=== PATIENT | female | born 1965 | race Caucasian/White ===

== ENCOUNTER 2017-01-16 08:21 | Emergency (ER) | payer BC, OTHER ==
--- NOTE | 2017-01-16 09:32 | RAD ---
HISTORY: Chest pain COMPARISONS: June 12, 2013 VIEWS: 2: Frontal dual-energy and lateral views of the chest. FINDINGS: CARDIOMEDIASTINAL SILHOUETTE: The cardiomediastinal silhouette is normal. ALEJANDRA: The alejandra are normal. PLEURA: The costophrenic angles are sharp. No pleural abnormalities are noted. LUNG PARENCHYMA: The lungs are clear. ABDOMEN: The upper abdomen is clear. There is no subphrenic gas. BONES AND SOFT TISSUES: No bone or soft tissue abnormalities are noted. OTHER: None. IMPRESSION: NO ACTIVE CARDIOPULMONARY DISEASE.
[2017-01-16 09:37] VITALS: BP 125/66
[2017-01-16 09:59] LABS: Hematocrit 40 % (35-47); Hemoglobin 13.4 g/dl (12.0-16.0); Mean Corpuscular HGB Conc 33 g/dl (31-36); Mean Corpuscular Hemoglobin 28 pg (27-31); Mean Corpuscular Volume 84 fL (80-97); Mean Platelet Volume 9 um3 (7.4-10.4); Red Blood Count 4.83 10^6/ul (4.0-5.4); Red Cell Distribution Width 13 % (10.5-15); White Blood Count 5.3 10^3/ul (3.5-10.8)
[2017-01-16 10:09] LABS: Albumin 4.1 g/dL (3.2-5.2); BUN/Creatinine Ratio 15.6 (8-20); C Reactive Protein 7.89 mg/L (< 5.00); Calcium 9.3 mg/dL (8.6-10.3); EGFR African American 101.2 (>60); EGFR Non-African American 78.7 (>60); Globulin 3.1 g/dL (2-4); Potassium 3.9 mmol/L (3.5-5.0); Total Bilirubin 0.4 mg/dL (0.2-1.0); Total Protein 7.2 g/dL (6.4-8.9)
--- NOTE | 2017-01-17 22:43 | ED ---
Lew Wilder Adam, scribed for Kendell Shelley MD on 01/16/17 at 1030 . HPI Chest Pain - HPI Summary HPI Summary: Pt is a 51 year old female presenting with chest pain. The pain radiates to the pt's arms and back. It is worse with breathing, swallowing, and any movement. She states that the pain was severe for about 10 minutes this morning. She has taken omeprazole and codeine which have alleviated the pain but it is still present. Pt has been sick for the past week and she also c/o sore throat, hoarse voice, and vomiting. She denies any known fever but has not been taking her temperature. PMHx of GERD, hiatal hernia, and carpal tunnel. - History of Current Complaint Chief Complaint: EDChestPainROMI Time Seen by Provider: 01/16/17 08:40 Hx Obtained From: Patient Onset/Duration: Started Hours Ago, Atraumatic Timing: Constant Initial Severity: Moderate Current Severity: Mild Pain Intensity: 6 Pain Scale Used: 0-10 Numeric Chest Pain Location: Diffuse Chest Pain Radiates: Yes Chest Pain Radiates To:: Back, Arm - Both Aggravating Factor(s): Movement, Deep Breaths, Other: - Swallowing Alleviating Factor(s): Other: - Omeprazole, codeine Associated Signs and Symptoms: Positive: Vomiting, Other: - Sore throat - Allergy/Home Medications Allergies/Adverse Reactions: Allergies Allergy/AdvReac Type Severity Reaction Status Date / Time No Known Allergies Allergy Verified 01/16/17 08:44 PMH/Surg Hx/FS Hx/Imm Hx Endocrine/Hematology History: Denies: Hx Diabetes Cardiovascular History: Reports: Hx Angina Denies: Hx Hypertension, Hx Pacemaker/ICD, Other Cardiovascular Problems/ Disorders Respiratory History: Denies: Hx Asthma, Hx Chronic Obstructive Pulmonary Disease (COPD), Other Respiratory Problems/Disorders GI History: Reports: Hx Gall Bladder Disease - cholecystectomy, Hx Gastroesophageal Reflux Disease - ON MED Denies: Other GI Disorders History: Denies: Hx Renal Disease, Other Problems/Disorders Musculoskeletal History: Reports: Hx Back Problems - Bulging disc, degen disc disease Denies: Other Musculoskeletal History Sensory History: Denies: Hx Contacts or Glasses, Hx Hearing Aid Opthamlomology History: Denies: Hx Contacts or Glasses Neurological History: Reports: Other Neuro Impairments/Disorders - bulging disc in lower spine, causing some low back pain Psychiatric History: Denies: Hx Panic Disorder - Cancer History Hx Chemotherapy: No Hx Radiation Therapy: No - Surgical History Surgery Procedure, Year, and Place: [id number]. CHOLECYSTECTOMY-2003 -[place]. RT KNEE SURGERY MENISCUS 2014 Hx Anesthesia Reactions: No - Immunization History Date of Tetanus Vaccine: unknown Date of Influenza Vaccine: none Infectious Disease History: No Infectious Disease History: Reports: Hx Tuberculosis - 2003 Denies: Traveled Outside the [place] in Last 30 Days - Family History Known Family History: Positive: Cardiac Disease - CAD (mother) - Social History Occupation: Employed Part-time Lives: With Family - Alcohol Use: None Hx Substance Use: No Substance Use Type: Reports: None Hx Tobacco Use: No Smoking Status (MU): Never Smoked Tobacco Review of Systems Negative: Fever Positive: Sore Throat Positive: Chest Pain Positive: Vomiting All Other Systems Reviewed And Are Negative: Yes Physical Exam Triage Information Reviewed: Yes Vital Signs On Initial Exam: Initial Vitals Temp Pulse Resp BP Pulse Ox 98.8 F 60 20 122/77 100 01/16/17 08:22 01/16/17 08:22 01/16/17 08:22 01/16/17 08:22 01/16/17 08:22 Vital Signs Reviewed: Yes Appearance: Positive: Well-Appearing, No Pain Distress Skin: Positive: Warm, Skin Color Reflects Adequate Perfusion, Dry Head/Face: Positive: Normal Head/Face Inspection Eyes: Positive: Normal ENT: Positive: Normal ENT inspection Neck: Positive: Supple, Nontender Respiratory/Lung Sounds: Positive: Clear to Auscultation, Breath Sounds Present Cardiovascular: Positive: RRR Abdomen Description: Positive: Nontender, Soft Bowel Sounds: Positive: Present Musculoskeletal: Positive: Normal Neurological: Positive: Normal Psychiatric: Positive: Affect/Mood Appropriate - Richelle Coma Scale Coma Scale Total: 15 Diagnostics - Vital Signs Vital Signs Temp Pulse Resp BP Pulse Ox 01/16/17 10:00 61 14 100 01/16/17 09:36 98.4 F 59 14 125/66 100 01/16/17 09:00 59 18 125/66 99 01/16/17 08:40 64 18 99 01/16/17 08:39 151/77 01/16/17 08:22 98.8 F 60 20 122/77 100 - Laboratory Lab Results: Lab Results 04/07/2501/16/17 01/16/17 Range/Units 09:40 09:40 09:40 WBC 5.3 (3.5-10.8) 10^3/ul RBC 4.83 (4.0-5.4) 10^6/ul Hgb 13.4 (12.0-16.0) g/dl Hct 40 (35-47) % MCV 84 (80-97) fL MCH 28 (27-31) pg MCHC 33 (31-36) g/dl RDW 13 (10.5-15) % Plt Count 307 (150-450) 10^3/ul MPV 9 (7.4-10.4) um3 Neut % (Auto) 57.0 (38-83) % Lymph % (Auto) 32.9 (25-47) % Hitchcock % (Auto) 6.0 (1-9) % Eos % (Auto) 3.1 (0-6) % Baso % (Auto) 1.0 (0-2) % Absolute Neuts (auto) 3.0 (1.5-7.7) 10^3/ul Absolute Lymphs (auto) 1.7 (1.0-4.8) 10^3/ul Absolute Monos (auto) 0.3 (0-0.8) 10^3/ul Absolute Eos (auto) 0.2 (0-0.6) 10^3/ul Absolute Basos (auto) 0.1 (0-0.2) 10^3/ul Absolute Nucleated RBC 0 10^3/ul Nucleated RBC % 0 Sodium 136 (133-145) mmol/L Potassium 3.9 (3.5-5.0) mmol/L Chloride 103 (101-111) mmol/L Carbon Dioxide 26 (22-32) mmol/L Anion Gap 7 (2-11) mmol/L BUN 12 (6-24) mg/dL Creatinine 0.77 (0.51-0.95) mg/dL Est GFR ( Amer) 101.2 (>60) Est GFR (Non-Af Amer) 78.7 (>60) BUN/Creatinine Ratio 15.6 (8-20) Glucose 114 H (70-100) mg/dL Lactic Acid 1.8 (0.5-2.0) mmol/L Calcium 9.3 (8.6-10.3) mg/dL Total Bilirubin 0.40 (0.2-1.0) mg/dL AST 22 (13-39) U/L ALT 24 (7-52) U/L Alkaline Phosphatase 69 (34-104) U/L Troponin I 0.00 (<0.04) ng/mL C-Reactive Protein 7.89 H (< 5.00) mg/L Total Protein 7.2 (6.4-8.9) g/dL Albumin 4.1 (3.2-5.2) g/dL Globulin 3.1 (2-4) g/dL Albumin/Globulin Ratio 1.3 (1-3) Result Diagrams: 01/16/17 09:40 01/16/17 09:40 Lab Statement: Any lab studies that have been ordered have been reviewed, and results considered in the medical decision making process. - Radiology CXR Radiology Interpretation Completed By: Radiologist - IMPRESSION: NO ACTIVE CARDIOPULMONARY DISEASE - EKG 08:33 Cardiac Rate: Bradycardia - Borderline - 61 BPM EKG Rhythm: Sinus Rhythm - Borderline bradycardia - Additional Comments Diagnostic Additional Comments: Troponin I - 0.00 Chest Pain Course/Dx - Course Course Of Treatment: Ms. Garvey presented with a cough for a few days and then some CP with coughing and breathing today. Her W/U was negative for any dangerous condition and she will be treated for acute bronchitis. - Diagnoses Provider Diagnoses: Bronchitis Discharge - Discharge Plan Condition: Stable Disposition: HOME Prescriptions: Clarithromycin TAB* [Biaxin TAB*] 500 mg PO BID #20 tab guaiFENesin/CODIEN 100MG-10MG* [Robitussin AC 100Mg-10Mg*] 5 ml PO Q4H PRN #250 udc MDD 30 PRN Reason: Cough Patient Education Materials: Acute Bronchitis (ED) Referrals: Marlene Martinez [Primary Care Provider] - Additional Instructions: Follow up with your Primary Care Provider this week. The documentation as recorded by the Lew esparza Adam accurately reflects the service I personally performed and the decisions made by me, Kendell Shelley MD.
== END 2017-01-16 11:04 | disposition home or self-care (01) ==
LOC: ED 08:21
DX: J40 Bronchitis, not specified as acute or chronic (principal); J02.9 Acute pharyngitis, unspecified; R07.9 Chest pain, unspecified; R11.10 Vomiting, unspecified
CPT/HCPCS: 36415; 71020; 80053; 83605; 84484; 85025; 86140; 93005; 99282

== ENCOUNTER → 2017-03-29 21:47 | Emergency (ER) | payer BC ==
[~2017-03-29 21:47] MED LIST: diPHENhydraMINE PO* 50 MG PO ONE
--- NOTE | 2017-03-29 22:44 | ED ---
Skin Complaint - HPI Summary HPI Summary: Patient presents with one week of itching and rash after exposure to poison mel. She is using over the counter anti-histamine creme and obtained steroids today from her provider. She does not feel that these are helping but she just took the first dose of steroid today. She has taken hot showers with only temporary relief. She denies fever, swelling or purulent drainage. - History of Current Complaint Chief Complaint: EDRashSkinAbscess Time Seen by Provider: 03/29/17 22:24 Stated Complaint: POISON [place] Hx Obtained From: Patient, Family/[employer] Onset/Duration: Started Weeks Ago - 1, Atraumatic, Still Present Timing: Constant Onset Severity: Mild Current Severity: Severe Skin Location: Diffuse Character: Pruritus, Redness Aggravating Symptom(s): Touch Alleviating Symptom(s): Nothing Associated Signs & Symptoms: Negative Related History: Possible Reaction to: Environmental Exposure - poison mel - Allergy/Home Medications Allergies/Adverse Reactions: Allergies Allergy/AdvReac Type Severity Reaction Status Date / Time No Known Allergies Allergy Verified 01/16/17 08:44 PMH/Surg Hx/FS Hx/Imm Hx Endocrine/Hematology History: Denies: Hx Diabetes Cardiovascular History: Reports: Hx Angina Denies: Hx Hypertension, Hx Pacemaker/ICD, Other Cardiovascular Problems/ Disorders Respiratory History: Denies: Hx Asthma, Hx Chronic Obstructive Pulmonary Disease (COPD), Other Respiratory Problems/Disorders GI History: Reports: Hx Gall Bladder Disease - cholecystectomy, Hx Gastroesophageal Reflux Disease - ON MED Denies: Other GI Disorders History: Denies: Hx Renal Disease, Other Problems/Disorders Musculoskeletal History: Reports: Hx Back Problems - Bulging disc, degen disc disease Denies: Other Musculoskeletal History Sensory History: Denies: Hx Contacts or Glasses, Hx Hearing Aid Opthamlomology History: Denies: Hx Contacts or Glasses Neurological History: Reports: Other Neuro Impairments/Disorders - bulging disc in lower spine, causing some low back pain Psychiatric History: Denies: Hx Panic Disorder - Cancer History Hx Chemotherapy: No Hx Radiation Therapy: No - Surgical History Surgery Procedure, Year, and Place: [id number]. CHOLECYSTECTOMY-2003 -[place]. RT KNEE SURGERY MENISCUS 2014 Hx Anesthesia Reactions: No - Immunization History Date of Tetanus Vaccine: unknown Date of Influenza Vaccine: none Infectious Disease History: Reports: Hx Tuberculosis - 2003 Denies: Traveled Outside the [place] in Last 30 Days - Family History Known Family History: Positive: Cardiac Disease - CAD (mother) - Social History Occupation: Employed Full-time Lives: With Family Alcohol Use: None Hx Substance Use: No Substance Use Type: Reports: None Hx Tobacco Use: No Smoking Status (MU): Never Smoked Tobacco Review of Systems Negative: Fever, Chills Positive: Other - diffuse erythematous pustules with linear tracks All Other Systems Reviewed And Are Negative: Yes Physical Exam Triage Information Reviewed: Yes Vital Signs Reviewed: Yes Appearance: Positive: Well-Appearing, No Pain Distress, Obese Skin: Positive: Warm, Skin Color Reflects Adequate Perfusion, Dry, Soft, Erythema @ - diffuse erythematous pustules with linear tracks Head/Face: Positive: Normal Head/Face Inspection Eyes: Positive: EOMI, ANGELA, Conjunctiva Clear ENT: Positive: Hearing grossly normal Respiratory/Lung Sounds: Positive: Breath Sounds Present Cardiovascular: Positive: RRR Musculoskeletal: Positive: Strength/ROM Intact. Negative: Edema Left, Edema Right Neurological: Positive: Sensory/Motor Intact, Alert, Oriented to Person Place, Time, NV Bundle Intact Distally, Normal Gait Psychiatric: Positive: Affect/Mood Appropriate AVPU Assessment: Alert Course/Dx - Differential Diagnoses - Skin Complaint Differential Diagnoses: Abscess, Cellulitis, Contact Dermatitis, Local Allergic Reaction, MRSA, Poison Mel, Poison [place], Urticaria - Diagnoses Provider Diagnoses: Poison mel Discharge - Discharge Plan Condition: Stable Disposition: HOME Patient Education Materials: Poison Mel (ED) Referrals: Radha Nix [Primary Care Provider] - Additional Instructions: Please begin using benadryl 50mg every four hours in combination with the steroids you received, and the anti-itch lotion. Follow-up with your primary care provider if symptoms persist.
== END | disposition home or self-care (01) ==
LOC: ED 21:47
DX: L23.7 Allergic contact dermatitis due to plants, except food (principal)
CPT/HCPCS: 99281; A9270-GY

== ENCOUNTER 2018-03-12 19:39 | Emergency (ER) | payer BC ==
--- OUTSIDE RECORDS SUMMARY | 2018-03-12 19:47 | XMS REPORT ---
:1965 External Reference #:[id number] Author Organization [facility] Address [address] [place] [address] Phone [phone] Care Team Providers Name Role Phone HCP given Primary Care Physician Unavailable Payers Type Date Identification Numbers Payment Provider Subscriber Health Maintenance Policy Number: [id number] Vero Castro Organization (HMO) PayID: [id number] [address] [place] [address] Problems Date Description Provider Status Onset: 08/15/2008 Esophagitis Bree Henderson MD Active Onset: 05/28/2010 Low back pain Carina Leal Active Onset: 02/25/2015 Disorder of shoulder Marlene Martinez RPA-C Active Onset: 02/25/2015 Gastroesophageal reflux disease Marlene Martinez RPA-C Active Onset: 06/14/2016 Adjustment disorder with mixed Radha Negrete PA Active emotional features Onset: 12/06/2016 Carpal tunnel syndrome Radha Negrete PA Active Onset: 01/10/2017 Localized, primary osteoarthritis Radha Negrete PA Active Onset: 03/15/2017 Joint pain Radha Negrete PA Active Onset: 03/15/2017 Varicose veins of lower extremity Radha Negrete PA Active Onset: 10/24/2017 Thoracic and lumbosacral neuritis Radha Negrete PA Active Onset: 10/24/2017 Cervical disc disorder Radha Negrete PA Active Onset: 10/24/2017 Degenerative joint disease Radha Negrete PA Active involving multiple joints Onset: 11/15/2017 Liver cyst Radha Negrete PA Active Family History Date Family Member(s) Problem(s) Comments Father , uncertain cause, in his sleep at age 51 or so. Mother CHF, 05/2017 at age 81 First Son Gerardo First Son 10-10-86 Second Son Mook Second Son 07-01-1994 First Daughter Winifred First Daughter 11-27-96 Number of Siblings Siblings: 7 First Sister living, thyroid disease. Social History Type Date Description Comments Marital Status Patient is Employment No longer working, approved for social security disability - 2016.Previously worked at [employer], "[employer]", works 12 hour shifts, began 06/16. Cigarette Use Denies Cigarette Use Smoking Non Smoker Sun Exposure Does not use sunscreen Seat Belt/Car Seat Never uses a seat belt Contraceptive Methods Does not currently use any method of control. Pt has a 23 y/o, 19y/o and 13 y/o. as of 05/2010. Allergies, Adverse Reactions, Alerts Date Description Reaction Status Severity Comments 03/31/2011 No Known Drug Allergy active Medications Medication Date Status Form Strength Qnty SIG Indications Ordering Provider Methylprednisolone 01/03/ Active TBPK 4mg 1unit use as M50.10 Xavier, 2018 nir Hdez on M.D. package Omeprazole 01/03/ Active Capsules 20mg 60cap 1 cap by K20.9 Sopruben, 2018 DR nir Zavala, twice a D.O. day K21.9 Carpal Tunnel Wrist 03/15/2017 Active Misc 2units use as G56.03 Hektor , Stabilizer/Small/Medium directed sara Garcia bilateral carpal tunnel syndrome Waist High Compression 03/15/2017 Active 2units use as I83.893 Penelope , Stockings MARIELLE Cleveland Knee Stabilizer W/Hinged 01/10/2017 Active Misc 1units use as M17.11 Hektor, Bars/Neoprene/Small directed MARIELLE Garcia Crutches-Aluminum 01/10/2017 Active Misc 1pair use as M17.11 morenita Negrete PA Tylenol With Codeine #3 01/10/2017 Active Tablets 30 90tabs 1 tab by M17.11 Silcoff, 0- mouth q8 Lemuel, 30 hours as M.D. mg needed for severe pain, max 3/day Knee Brace/Flexible 10/26/2016 Active Misc 1units use as M25.561 Hektor, Stays/Medium directed MARIELLE Garcia Escitalopram Oxalate 10/26/2016 Active Tablets 20 90tabs 1 by mouth F43.23 Silcoff, mg every day Pop Hdez Colchicine 06/07/2016 Active Tablets 0. 180tabs 1-2 tabs Hektor, 6m by mouth audrey Garcia every day PA as needed Ibuprofen 09/09/2015 Active Tablets 80 180tabs one tablet M51.26 Silcoff, 0m by mouth audrey Hdez three M.D. times a day if needed for pain M25.579 M75.80 Allopurinol 04/18/2015 Active Tablets 300mg 90tabs Take 1 E79.0 Silcoff , Tablet By Jayce Hdez Daily M.DEric Clobetasol 04/06/2017 Hx Cream 0.05% 90gm apply small Hektor, Propionate E - amount to MARIELLE Garcia 05/06/2017 effected areas twice as needed for itch/poison oak Methylprednisolone 03/29/2017 Hx TBPK 4mg 1units use as Hektor, - directed on MARIELLE Garcia 04/28/2017 package Desloratadine 03/28/2017 Hx Tablets 5mg 30tabs 1 tab by L23.7 Penelope, - Dispers mouth every MARIELLE Garcia 04/27/2017 day as needed for itch Meloxicam 03/15/2017 Hx Tablets 15mg 30tabs 1 tab by M17.11 Hekgénesis, - mouth every MARIELLE Garcia 04/14/2017 day for joint pain (don't take w ibuprofen) Escitalopram 06/14/2016 Hx Tablets 10mg 30tabs 1 tab by F43.23 Penelope, Oxalate - mouth every MARIELLE Garcia 10/26/2016 day Hydrocortisone 08/24/2015 Hx Ointment 2.5% 40gm apply to R21 Penelope, - areas twice MARIELLE Garcia 05/04/2017 a day as needed for itchiness, use sparyingly L23.9 Amoxicillin 08/24/2015 - Hx Capsules 250mg 30caps 1 tid for J20.9 Angeles A. 09/03/2015 ten days for Kleandrea pruett.DEric Lomotil 08/24/2015 - Hx Tablets 2.5-0.0 14tabs 1-2 four R19.7 Angeles A. 10/23/2015 25mg times a day Klepack, as needed M.D. diarrhea Zofran 08/24/2015 - Hx Tablets 4mg 12tabs 1 twice a R19.7 Angeles A. 10/23/2015 day to three Klepack, times a day M.D. as needed for nausea Typhoid 08/10/2015 - Hx 4units 1 every Z71.89 Angeles A. Vaccine Live 06/13/2016 other day Klepack, Oral for 4 doses M.D. Augmentin 05/25/2015 - Hx Tablets 875-125 14tabs 1 tab twice 380.10 Angeles A. 06/01/2015 mg a day with Klepack, food for 7 M.D. days Ciprodex 05/23/2015 - Hx Suspension 0.3-0.1 7.500ml 4 drops in 380.10 Angeles A. 05/23/2015 % the left ear Klepack, canal twice M.D. daily or a week. Cortisporin 05/23/2015 - Hx Solution 3.5-100 10ml 4 gtts to 380.10 Angeles A. 05/30/2015 00-1 the left ear Klepack, canal tid M.D. for 1 week Percocet 05/23/2015 - Hx Tablets 5-325mg 15tabs 1 tab every Angeles A. 06/23/2015 8 hours as Klepapepe, needed for M.D. pain Colcrys 03/11/2015 - Hx Tablets 0.6mg 60tabs 1 by mouth 274.00 Silcoff, 07/05/2015 bid Pop Hdez Allopurinol 03/11/2015 - Hx Tablets 100mg 30tabs 1 po qd 274.00 Silcoff , 04/18/2015 Pop Hdez Omeprazole 02/26/2015 - Hx Capsules DR 40mg 60caps 1 by mouth K20.9 Hektor, 01/03/2018 daily in the [place], [place] morning K21.9 Hydrocortisone 02/25/2015 - Hx Ointment 2.5% 20gm apply to areas 782.1 Silcoff, 03/28/2015 twice a day as Pop Hdez needed for itchiness, use sparyingly 692.9 Prednisone 02/25/2015 - Hx Tablets 20mg 5tabs 1 tab every 782.1 Silcoff , 03/02/2015 morning for 5 Pop Hdez days 692.9 Clotrimazole 05/08/2014 - Hx Cream 1% 60gm apply twice 782.1 Silcoff, 02/25/2015 a day for Lemuel, at least 2 M.D. weeks, then continue one week once the sxs have improved. Mupirocin 05/08/2014 - Hx Ointment 2% 22g apply three 782.1 Silcoff, 02/25/2015 times a day Lemuel, x 1 week to MSrinath affected areas Knee Brace With 03/06/2014 - Hx 1units Wear daily Silcoff, Medial And Lateral 03/06/2015 Fabio Hdez M.D. Clobetasol 02/24/2014 - Hx Cream 0.05% 15gr apply small 782.1 Silcoff, Propionate E 02/25/2015 amt to dina Hdezed Pop areas bid for up to 2 week Indomethacin 02/12/2014 - Hx Capsules 50mg 30caps 1 tab po 719.46 Silcoff, 03/15/2014 t.i.d., can Lemuel, reduce to M.D. bid if pain improves, cont until pain gone Acetasol HC 11/05/2013 - Hx Solution 2-1% 10ml Instill 3-5 Silcoff, 12/06/2013 drops in Lemuel ear(s) Enrique.DEric every 4-6 hours Gabapentin 10/04/2013 - Hx Capsules 300mg 90caps 1 po qhs x 726.19 Silcoff, 12/05/2013 3 days then Lemuel try bidx 3 M.D. d, then tid Cortic-ND 09/23/2013 - Hx Solution 10-10 1bottle 4 gtt Silcoff, 02/06/2014 -1mg/ tid-qid x 7 Lemuel, ml days M.D. Celebrex 09/23/2013 - Hx Capsules 200mg 9caps 1 po qd or 726.19 Silcoff , 10/04/2013 bid Lemuel (samples) Pop Skelaxin 09/23/2013 - Hx Tablets 800mg 12tabs 1 tid-qid 726.19 Silcoff, 02/06/2014 (samples) Pop Hdez Nexium 09/23/2013 - Hx Capsules 20mg 90caps 1 po qd 20 530.11 Silcoff, 02/06/2014 min before kunal Hdez M.D. Cyclobenzaprine 06/13/2013 - Hx Tablets 10mg 1/2 tablet Silcoff, HCL 02/06/2014 by mouth Lemuel, every 8 M.D. hours prn for muscle spasm Penicillin V 02/18/2013 - Hx Tablets 500mg 40tabs 1 by mouth 525.9 Silcoff, Potassium 02/28/2013 four times Lemuel, a day for M.D. tooth infection Cipro 12/19/2012 - Hx Tablets 500mg 20tabs 1 tab po 009.2 Silcoff, 12/29/2012 bid x 10 reji Hdez M.D. Hydrocortisone 03/31/2011 - Hx Lotion 2.5% 120ml Apply bid 726.19 Silcoff, Topical Base 08/11/2012 to affected margarito Hdez M.D. Prednisone 03/31/2011 - Hx Tablets 20mg 10tabs one tablet 726.19 Silcoff, 04/24/2012 twice daily Lemuel, for 5 days M.D. Metronitazole 05/28/2010 - Hx Tablets 500mg 14tabs 1 tab po 616.10 Silcoadrina, 06/05/2010 bid x 7d Pop Hdez Cipro 05/28/2010 - Hx Tablets 250mg 6tabs 1 tab bid x 788.1 Xavier, 06/01/2010 3 Pop Hdez Omeprazole 03/13/2009 - Hx Capsules 20mg 180caps 1 by mouth 530.10 Silcoadrian, 02/26/2015 twice a day Pop Hdez 530.81 Imipramine 01/20/2009 - Hx Tablets 10mg one tablet po at 789.03 Bridger, HCL 03/12/2009 hs, increase to 2 MD Óscar tablets prn Optivar 07/25/2008 - Hx Solution 0.05% 10c 1 gtte to both 375.15 Tomásson , 04/24/2012 c eyes bid as Bree NUÑEZ directed for allergic conjunctivitis Prevacid 07/18/2008 - Hx Capsules 30mg 90c 1 po qd 530.10 Beatriz, 03/13/2009 aps Bree NUÑEZ Ibuprofen 07/18/2008 - Hx Tablets 800mg 90t one tablet by 722.10 Silcoff, 07/05/2015 abs mouth three times estephanie Hdez as needed Pop for musculoskeletal pain 719.47 726.19 Livostin 07/18/2008 - Hx Suspension 0.05% 10cc one drop to both 375.15 Beatriz, 07/25/2008 eyes bid prn Bree NUÑEZ Ciprofloxacin 04/29/2008 - Hx Tablets 250mg 14tab 1 PO Once bid Beatriz , HCL 05/06/2008 s For 7 days Bree NUÑEZ Septra DS 04/18/2008 - Hx Tablets 800-160 6tabs 1 po bid x3 days 595.0 Silcoff, 04/21/2008 Pop Hdez Pyridium 04/18/2008 - Hx Tablets 100mg 6tabs 1-2 po tid prn 595.0 Silcoff, 04/21/2008 bladder pain Pop Hdez Zithromax Z-Krish 07/30/2007 - Hx Tablets 250mg 2Pack 2 tablets po day Beatriz, 08/10/2007 s 1, then one Bree NUÑEZ tablet po day 2 to 11 Work Note 11/21/2006 - Hx piltong is fit to 719.45 Beatriz, 11/22/2006 return to work Bree NUÑEZ without restrictions. Physical Therapy 10/11/2006 - Hx pelvic pain Beatriz, 11/21/2006 Bree NUÑEZ bladder pain Work Note 08/21/2006 - Hx piltong castro is 719.45 Beatriz, 11/21/2006 unable to work Bree NUÑEZ due to musculoskelatal strain. Compazine 06/26/2006 - Hx Tablets 5mg 12tab 1 po q8 hours 787.02 Beatriz , 11/21/2006 s prn nausea Bree NUÑEZ Prevacid 06/06/2006 - Hx Capsules 30mg 21cap 1 qd For Reflux Beatriz, 07/18/2008 s Bree NUÑEZ Advair Diskus 05/16/2006 - Hx Inhaler 100mcg; 1Disk 1 puff bid Beatriz, 03/12/2009 50mcg Bree NUÑEZ Z-Krish 04/13/2006 - Hx Tablets 250mg 1tabs 2 tab day one 466.0 Radhames, 04/13/2006 then 1 tab daily Sanjuana NUÑEZ x 4 more days. Septra DS 04/13/2006 - Hx Tablets 800mg;1 20tab 1 po bid x 10 466.0 Radhames, 04/23/2006 60 mg s days Sanjuana NUÑEZ Use Instead Of Zpak But Not Both. Prednisone 02/16/2006 - Hx Tablets 20mg 10tab one tablet twice 726.19 Beatriz 05/16/2006 s daily for five Bree NUÑEZ days Keflex 02/16/2006 - Hx Tablets 500mg 21tab one tablet po 726.19 Beatriz, 05/16/2006 s tid Bree NUÑEZ Hydrocortisone 02/16/2006 - Hx Lotion 2.5% 120ml Apply bid as 726.19 Beatriz, Topical Base 03/12/2009 directed Bree NUÑEZ Omeprazole 02/16/2006 - Hx Capsules 20mg one tablet po 726.19 Beatriz, 06/06/2006 bid Bree NUÑEZ Clarithromycin - Hx Tablets 500mg 1 by mouth twice Unknown 03/14/2017 a day Guaifenesin-Code - Hx Syrup 100-10m 1 teaspoon every Unknown ine 03/14/2017 g/5ML 4 hours as needed for cough Immunizations CPT Code Status Date Vaccine Lot # [id number] Given 08/09/2017 Influenza Virus Vaccine, Quadrivalent, Split, [id number] Preservative Free 09815 Given 08/10/2015 Influenza Virus Vaccine, Quadrivalent, Split, [place] Use 71398 Given 08/10/2015 Hep A, Adult [id number] 27177 Given 08/13/2012 Adacel or Boostrix, TDaP [id number] 24951 Given 08/13/2012 Flu, Split Virus 3Yrs [id number] Vital Signs Date Vital Result Comment 03/12/2018 BP Systolic 130 mmHg BP Diastolic 88 mmHg Weight 159.00 lb 01/03/2018 BP Systolic 122 mmHg BP Diastolic 76 mmHg Weight 161.00 lb 10/24/2017 BP Systolic 128 mmHg BP Diastolic 84 mmHg Body Temperature 98.5 F Height 61 inches 5'1" w/boots Weight 160.00 lb w/boots BMI (Body Mass Index) 30.2 kg/m2 08/09/2017 BP Systolic 120 mmHg BP Diastolic 78 mmHg 07/06/2017 BP Systolic 130 mmHg BP Diastolic 90 mmHg Weight 153.00 lb 03/28/2017 BP Systolic 110 mmHg BP Diastolic 68 mmHg Weight 156.00 lb 03/15/2017 BP Systolic 130 mmHg BP Diastolic 80 mmHg Weight 157.00 lb 01/18/2017 BP Systolic 122 mmHg BP Diastolic 80 mmHg Body Temperature 98.2 F Weight 157.00 lb 01/10/2017 BP Systolic 135 mmHg BP Diastolic 78 mmHg Height 59.75 inches 4'11.75" Weight 156.00 lb BMI (Body Mass Index) 30.7 kg/m2 10/26/2016 BP Systolic 124 mmHg BP Diastolic 70 mmHg Weight 152.00 lb 06/14/2016 BP Systolic 122 mmHg BP Diastolic 70 mmHg Height 59.75 inches 4'11.75" Weight 152.00 lb BMI (Body Mass Index) 29.9 kg/m2 08/24/2015 BP Systolic 128 mmHg BP Diastolic 80 mmHg Heart Rate 80 /min Respiratory Rate 16 /min Body Temperature 98.5 F 08/10/2015 BP Systolic 160 mmHg BP Diastolic 98 mmHg Weight 153.00 lb 07/06/2015 BP Systolic 122 mmHg BP Diastolic 80 mmHg Weight 153.00 lb 05/26/2015 BP Systolic 120 mmHg BP Diastolic 70 mmHg Body Temperature 98.1 F 05/23/2015 BP Systolic 136 mmHg BP Diastolic 84 mmHg Body Temperature 98.8 F Weight 153.00 lb 03/09/2015 BP Systolic 132 mmHg BP Diastolic 80 mmHg Height 59.75 inches 4'11.75" Weight 152.00 lb BMI (Body Mass Index) 29.9 kg/m2 02/25/2015 BP Systolic 124 mmHg BP Diastolic 80 mmHg Body Temperature 97.9 F Height 59.5 inches 4'11.50" Weight 156.00 lb BMI (Body Mass Index) 31.0 kg/m2 05/08/2014 BP Systolic 147 mmHg BP Diastolic 82 mmHg Heart Rate 68 /min Weight 157.00 lb 02/24/2014 BP Systolic 157 mmHg med cuff BP Diastolic 83 mmHg med cuff BP Systolic Recheck 129 mmHg lg cuff BP Diastolic Recheck 80 mmHg lg cuff Heart Rate 62 /min 57 Height 59.25 inches 4'11.25" Weight 153.00 lb BMI (Body Mass Index) 30.6 kg/m2 02/12/2014 BP Systolic 141 mmHg BP Diastolic 87 mmHg Heart Rate 67 /min Body Temperature 98.1 F Weight 158.00 lb 12/05/2013 BP Systolic 123 mmHg BP Diastolic 75 mmHg Heart Rate 61 /min Body Temperature 98.1 F Weight 151.00 lb 10/04/2013 BP Systolic 116 mmHg BP Diastolic 70 mmHg Heart Rate 75 /min 09/23/2013 BP Systolic 141 mmHg BP Diastolic 75 mmHg Heart Rate 62 /min Body Temperature 98.1 F Height 61 inches 5'1" shoes on Weight 154.00 lb shoes on BMI (Body Mass Index) 29.1 kg/m2 07/08/2013 BP Systolic 138 mmHg BP Diastolic 77 mmHg Heart Rate 68 /min Weight 153.00 lb 06/14/2013 BP Systolic 138 mmHg BP Diastolic 77 mmHg Heart Rate 62 /min Body Temperature 98.4 F Weight 156.00 lb 02/18/2013 BP Systolic 134 mmHg BP Diastolic 82 mmHg Body Temperature 97.4 F Height 59.75 inches 4'11.75" Weight 157.00 lb BMI (Body Mass Index) 30.9 kg/m2 12/19/2012 BP Systolic 140 mmHg BP Diastolic 86 mmHg Heart Rate 63 /min Weight 150.00 lb 08/13/2012 BP Systolic 140 mmHg BP Diastolic 82 mmHg Heart Rate 65 /min Height 60 inches 5'0" Weight 154.00 lb BMI (Body Mass Index) 30.1 kg/m2 04/25/2012 BP Systolic 135 mmHg BP Diastolic 89 mmHg Heart Rate 60 /min Body Temperature 97.8 F Weight 154.00 lb 03/31/2011 BP Systolic 141 mmHg BP Diastolic 79 mmHg Heart Rate 76 /min Body Temperature 97.9 F Height 59.75 inches 4'11.75" Weight 158.00 lb BMI (Body Mass Index) 31.1 kg/m2 05/28/2010 BP Systolic 118 mmHg BP Diastolic 68 mmHg Heart Rate 74 /min Height 60 inches 5'0" Weight 150.00 lb BMI (Body Mass Index) 29.3 kg/m2 Last Menstrual Period 0 hysterectomy 01/25/2010 BP Systolic 129 mmHg BP Diastolic 85 mmHg Heart Rate 65 /min Height 60.25 inches 5'0.25" Weight 149.00 lb BMI (Body Mass Index) 28.9 kg/m2 03/12/2009 BP Systolic 108 mmHg BP Diastolic 68 mmHg Height 59.50 inches 4'11.50" Weight 149.00 lb BMI (Body Mass Index) 29.6 kg/m2 08/15/2008 BP Systolic 114 mmHg BP Diastolic 70 mmHg Height 60 inches 5'0" Weight 148.00 lb BMI (Body Mass Index) 28.9 kg/m2 07/18/2008 BP Systolic 104 mmHg BP Diastolic 68 mmHg Body Temperature 98.1 F Height 60 inches 5'0" Weight 147.00 lb BMI (Body Mass Index) 28.7 kg/m2 04/18/2008 BP Systolic 118 mmHg BP Diastolic 82 mmHg Body Temperature 98.2 F Height 60 inches 5'0" Weight 144.00 lb BMI (Body Mass Index) 28.1 kg/m2 07/30/2007 BP Systolic 92 mmHg BP Diastolic 60 mmHg Body Temperature 98.1 F Height 60 inches 5'0" Weight 140.00 lb BMI (Body Mass Index) 27.3 kg/m2 11/21/2006 BP Systolic 122 mmHg BP Diastolic 78 mmHg Height 60 inches 5'0" Weight 156.00 lb BMI (Body Mass Index) 30.5 kg/m2 10/20/2006 BP Systolic 120 mmHg BP Diastolic 80 mmHg Body Temperature 98.3 F Height 60 inches 5'0" Weight 156.00 lb BMI (Body Mass Index) 30.5 kg/m2 Last Menstrual Period 0 08/21/2006 BP Systolic 110 mmHg BP Diastolic 70 mmHg Body Temperature 98.7 F Height 60 inches 5'0" Weight 153.00 lb BMI (Body Mass Index) 29.9 kg/m2 06/26/2006 BP Systolic 122 mmHg BP Diastolic 70 mmHg Height 60 inches 5'0" Weight 153.00 lb BMI (Body Mass Index) 29.9 kg/m2 05/16/2006 BP Systolic 108 mmHg BP Diastolic 70 mmHg Height 60 inches 5'0" Weight 158.00 lb BMI (Body Mass Index) 30.9 kg/m2 04/13/2006 BP Systolic 110 mmHg BP Diastolic 64 mmHg Body Temperature 97.8 F Height 59.6 inches 4'11.60" Weight 158.00 lb BMI (Body Mass Index) 31.3 kg/m2 02/16/2006 Body Temperature 97.8 F Height 59.6 inches 4'11.60" Weight 155.00 lb BMI (Body Mass Index) 30.7 kg/m2 Results Test Date Test Result H/L Range Note CBC Auto Diff 01/04/2018 White Blood Count 5.1 10^3/uL 3.5-10.8 Red Blood Count 4.89 10^6/uL 4.0-5.4 Hemoglobin 13.9 g/dL 12.0-16.0 Hematocrit 41 % 35-47 Mean Corpuscular Volume 84 fL 80-97 Mean Corpuscular Hemoglobin 29 pg 27-31 Mean Corpuscular HGB Conc 34 g/dL 31-36 Red Cell Distribution Width 13 % 10.5-15 Platelet Count 299 10^3/uL 150-450 Mean Platelet Volume 9.0 um3 7.4-10.4 Abs Neutrophils 2.5 10^3/uL 1.5-7.7 Abs Lymphocytes 2.0 10^3/uL 1.0-4.8 Abs Monocytes 0.4 10^3/uL 0-0.8 Abs Eosinophils 0.2 10^3/uL 0-0.6 Abs Basophils 0 10^3/uL 0-0.2 Abs Nucleated RBC 0 10^3/uL Granulocyte % 49.0 % 38-83 Lymphocyte % 38.8 % 25-47 Monocyte % 7.0 % 0-7 Eosinophil % 4.7 % 0-6 Basophil % 0.5 % 0-2 Nucleated Red Blood Cells % 0 Ua Inhouse 01/04/2018 Ua Glucose - Ua Bilirubin - Ua Ketones - Ua Specific [place] 1.010 Ua Blood - Ua PH 6.0 Ua Protein - Ua Urobilinogen - Ua Nitrite - Ua Leukocytes - Comp Metabolic Panel 01/04/2018 Sodium 139 mmol/L 139-145 Potassium 4.4 mmol/L 3.5-5.0 Chloride 102 mmol/L 101-111 Co2 Carbon Dioxide 26 mmol/L 22-32 Anion Gap 11 mmol/L 2-11 Glucose 107 mg/dL High 70-100 Blood Urea Nitrogen 18 mg/dL 6-24 Creatinine 0.84 mg/dL 0.51-0.95 BUN/Creatinine Ratio 21.4 High 8-20 Calcium 9.5 mg/dL 8.6-10.3 Total Protein 7.2 g/dL 6.4-8.9 Albumin 4.5 g/dL 3.2-5.2 Globulin 2.7 g/dL 2-4 Albumin/Globulin Ratio 1.7 1-3 Total Bilirubin 0.40 mg/dL 0.2-1.0 Alkaline Phosphatase 83 U/L 34-104 Alt 28 U/L 7-52 Ast 22 U/L 13-39 Egfr Non- 70.9 >60 Egfr 91.2 >60 1 Laboratory test finding 01/04/2018 GGTP 39 U/L 9-64.0 Amylase 49 U/L 29-103 Lipase 16 U/L 11.0-82.0 Laboratory test finding 01/03/2018 GGTP <pending> Lipase <pending> Amylase <pending> Laboratory test finding 10/30/2017 Surgical Pathology SEE RESULT BELOW 2, 3 Culture Urine Inhouse 10/24/2017 Colonies 07/11 4 Ua Inhouse 10/24/2017 Ua Glucose - 4 Ua Bilirubin - 4 Ua Ketones - 4 Ua Specific [place] 1.010 4 Ua Blood - 4 Ua PH 6.0 4 Ua Protein - 4 Ua Urobilinogen - 4 Ua Nitrite - 4 Ua Leukocytes - 4 Laboratory test finding 07/06/2017 Hemoglobin A1c 5.5 Laboratory test finding 03/28/2017 Hemoglobin A1c 5.8 Laboratory test finding 10/26/2016 Vitamin D Total 25(Oh) 22.3 ng/mL Low 30-50 Lyme Disease Serology Negative Negative 5 Anti Nuclear Antibody 0.3 U 6 Rheumatoid Factor <15 IU/mL <15 7 Cyclic Citrullinated Pep Igg <15.6 U 8 Laboratory test finding 10/26/2016 Erythrocyte Sed Rate 8 mm/Hr 0-30 Magnesium 2.1 mg/dL 1.9-2.7 TSH (Thyroid Stim Horm) 2.15 mcIU/mL 0.34-5.60 Comp Metabolic Panel 10/26/2016 Sodium 137 mmol/L 133-145 Potassium 4.4 mmol/L 3.5-5.0 Chloride 101 mmol/L 101-111 Co2 Carbon Dioxide 29 mmol/L 22-32 Anion Gap 7 mmol/L 2-11 Glucose 88 mg/dL 70-100 Blood Urea Nitrogen 16 mg/dL 6-24 Creatinine 0.74 mg/dL 0.51-0.95 BUN/Creatinine Ratio 21.6 High 8-20 Calcium 9.8 mg/dL 8.6-10.3 Total Protein 7.6 g/dL 6.4-8.9 Albumin 4.6 g/dL 3.2-5.2 Globulin 3.0 g/dL 2-4 Albumin/Globulin Ratio 1.5 1-3 Total Bilirubin 0.40 mg/dL 0.2-1.0 Alkaline Phosphatase 63 U/L 34-104 Alt 22 U/L 7-52 Ast 21 U/L 13-39 Egfr Non- 82.4 >60 Egfr 106.0 >60 9 Xray 08/24/2015 X-Ray, Chest, 2 Views wnl Laboratory test finding 08/24/2015 Culture Throat Rapid Screen negative Culture Throat negative CBC Auto Diff 08/11/2015 White Blood Count 4.8 10^3/uL 4.8-10.8 Red Blood Count 5.25 10^6/uL 4.0-5.4 Hemoglobin 14.9 g/dL 12.0-16.0 Hematocrit 45 % 35-47 Mean Corpuscular Volume 86 fL 80-97 Mean Corpuscular Hemoglobin 28 pg 27-31 Mean Corpuscular HGB Conc 33 g/dL 31-36 Red Cell Distribution Width 13 % 10.5-15 Platelet Count 278 10^3/uL 150-450 Mean Platelet Volume 8 um3 7.4-10.4 Abs Neutrophils 2.7 10^3/uL 1.5-7.7 Abs Lymphocytes 1.7 10^3/uL 1.0-4.8 Abs Monocytes 0.3 10^3/uL 0-0.8 Abs Eosinophils 0.1 10^3/uL 0-0.6 Abs Basophils 0.1 10^3/uL 0-0.2 Abs Nucleated RBC 0 10^3/uL Granulocyte % 54.9 % 38-83 Lymphocyte % 34.4 % 25-47 Monocyte % 6.6 % 1-9 Eosinophil % 2.9 % 0-6 Basophil % 1.2 % 0-2 Nucleated Red Blood Cells % 0 Laboratory test finding 08/11/2015 Erythrocyte Sed Rate 7 mm/Hr 0-30 Comp Metabolic Panel 08/11/2015 Sodium 138 mmol/L 133-145 Potassium 4.3 mmol/L 3.5-5.0 Chloride 103 mmol/L 101-111 Co2 Carbon Dioxide 29 mmol/L 22-32 Anion Gap 6 mmol/L 2-11 Glucose 103 mg/dL High 70-100 Blood Urea Nitrogen 14 mg/dL 6-24 Creatinine 0.72 mg/dL 0.51-0.95 BUN/Creatinine Ratio 19.4 8-20 Calcium 9.9 mg/dL 8.6-10.3 Total Protein 7.2 g/dL 6.4-8.9 Albumin 4.6 g/dL 3.2-5.2 Globulin 2.6 g/dL 2-4 Albumin/Globulin Ratio 1.8 1-3 Total Bilirubin 0.50 mg/dL 0.2-1.0 Alkaline Phosphatase 65 U/L 34-104 Alt 37 U/L 7-52 Ast 28 U/L 13-39 Egfr Non- 85.4 >60 Egfr 109.8 >60 10 Basic Metabolic Panel 06/17/2015 Sodium 139 mmol/L 133-145 Potassium 4.3 mmol/L 3.5-5.0 Chloride 104 mmol/L 101-111 Co2 Carbon Dioxide 27 mmol/L 22-32 Anion Gap 8 mmol/L 2-11 Glucose 100 mg/dL 70-100 Blood Urea Nitrogen 17 mg/dL 6-24 Creatinine 0.76 mg/dL 0.51-0.95 BUN/Creatinine Ratio 22.4 High 8-20 Calcium 9.4 mg/dL 8.6-10.3 Egfr Non- 80.6 >60 Egfr 103.6 >60 11 Laboratory test finding 06/17/2015 Uric Acid 6.6 mg/dL 2.3-6.6 Basic Metabolic Panel 03/23/2015 Sodium 137 mmol/L 133-145 Potassium 4.1 mmol/L 3.5-5.0 Chloride 104 mmol/L 101-111 Co2 Carbon Dioxide 26 mmol/L 22-32 Anion Gap 7 mmol/L 2-11 Glucose 97 mg/dL 70-100 Blood Urea Nitrogen 11 mg/dL 6-24 Creatinine 0.73 mg/dL 0.51-0.95 BUN/Creatinine Ratio 15.1 8-20 Calcium 9.3 mg/dL 8.6-10.3 Egfr Non- 84.4 >60 Egfr 108.5 >60 12 Laboratory test finding 03/23/2015 Uric Acid 5.3 mg/dL 2.3-6.6 Laboratory test finding 03/09/2015 Uric Acid 7.0 mg/dL High 2.3-6.6 13 Lipid Profile (Trig/Chol/HDL) 03/09/2015 Triglycerides 89 mg/dL 14 Cholesterol 179 mg/dL 15 HDL Cholesterol 81.2 mg/dL 16 LDL Cholesterol 80 mg/dL 17 Comp Metabolic Panel 03/09/2015 Sodium 137 mmol/L 133-145 Potassium 4.1 mmol/L 3.5-5.0 Chloride 104 mmol/L 101-111 Co2 Carbon Dioxide 28 mmol/L 22-32 Anion Gap 5 mmol/L 2-11 Glucose 93 mg/dL 70-100 Blood Urea Nitrogen 15 mg/dL 6-24 Creatinine 0.76 mg/dL 0.51-0.95 BUN/Creatinine Ratio 19.7 8-20 Calcium 9.2 mg/dL 8.6-10.3 Total Protein 7.4 g/dL 6.4-8.9 Albumin 4.6 g/dL 3.2-5.2 Globulin 2.8 g/dL 2-4 Albumin/Globulin Ratio 1.6 1-3 Total Bilirubin 0.50 mg/dL 0.2-1.0 Alkaline Phosphatase 56 U/L 34-104 Alt 16 U/L 7-52 Ast 18 U/L 13-39 Egfr Non- 80.6 >60 Egfr 103.6 >60 18 CBC No Diff 03/09/2015 White Blood Count 6.0 10^3/uL 4.8-10.8 Red Blood Count 5.04 10^6/uL 4.0-5.4 Hemoglobin 14.8 g/dL 12.0-16.0 Hematocrit 44 % 35-47 Mean Corpuscular Volume 86 fL 80-97 Mean Corpuscular Hemoglobin 29 pg 27-31 Mean Corpuscular HGB Conc 34 g/dL 31-36 Red Cell Distribution Width 13 % 10.5-15 Platelet Count 303 10^3/uL 150-450 Mean Platelet Volume 9 um3 7.4-10.4 Laboratory test finding 10/22/2014 C Reactive Protein 5.90 mg/L High < 5.00 19 Erythrocyte Sed Rate 12 mm/Hr 0-30 Lyme Disease Serology Negative Negative 20 Rheumatoid Factor <15 IU/mL <15 21 Barbara (Anti-Nuclear AB) Screen Negative Negative Urine Micro Inhouse 02/25/2014 Ua WBC - Ua RBC - Ua Casts - Ua Epi 1.010 Ua Other - Ua Glucose 5.0 Ua Bilirubin - Ua Ketones - Ua Specific [place] - Ua Blood - Ua Inhouse 02/24/2014 Ua Glucose - Ua Bilirubin - Ua Ketones - Ua Specific [place] 1.010 Ua Blood - Ua PH 5.0 Ua Protein - Ua Urobilinogen - Ua Nitrite - Ua Leukocytes - CBC Auto Diff 02/12/2014 White Blood Count 8.9 10^3/uL 4.8-10.8 Red Blood Count 4.62 10^6/uL 4.0-5.4 Hemoglobin 13.2 g/dL 12.0-16.0 Hematocrit 39 % 35-47 Mean Corpuscular Volume 84 fL 80-97 Mean Corpuscular Hemoglobin 29 pg 27-31 Mean Corpuscular HGB Conc 34 g/dL 31-36 Red Cell Distribution Width 13 % 10.5-15 Platelet Count 287 10^3/uL 150-450 Mean Platelet Volume 9 um3 7.4-10.4 Abs Neutrophils 5.5 10^3/uL 1.5-7.7 Abs Lymphocytes 2.6 10^3/uL 1.0-4.8 Abs Monocytes 0.6 10^3/uL 0-0.8 Abs Eosinophils 0.2 10^3/uL 0-0.6 Abs Basophils 0 10^3/uL 0-0.2 Abs Nucleated RBC 0.01 10^3/uL Granulocyte % 61.7 % 38-83 Lymphocyte % 29.9 % 25-47 Monocyte % 6.4 % 1-9 Eosinophil % 1.8 % 0-6 Basophil % 0.2 % 0-2 Nucleated Red Blood Cells % 0.1 Inr/Protime 02/12/2014 Inr 0.88 0.85-1.06 Comp Metabolic Panel 02/12/2014 Sodium 135 mmol/L 133-145 Potassium 4.1 mmol/L 3.7-5.6 Chloride 103 mmol/L 101-111 Co2 Carbon Dioxide 25 mmol/L 22-32 Anion Gap 7 mmol/L 2-11 Glucose 102 mg/dL High 70-100 Blood Urea Nitrogen 11 mg/dL 6-24 Creatinine 0.64 mg/dL 0.51-0.95 BUN/Creatinine Ratio 17.2 8-20 Calcium 8.9 mg/dL 8.6-10.3 Total Protein 6.5 g/dL 6.4-8.9 Albumin 4.1 g/dL 3.2-5.2 Globulin 2.4 g/dL 2-4 Albumin/Globulin Ratio 1.7 1-3 Total Bilirubin 0.30 mg/dL 0.2-1.0 Alkaline Phosphatase 52 U/L 34-104 Alt 17 U/L 7-52 Ast 19 U/L 13-39 Egfr Non- 98.6 >60 Egfr 126.8 >60 22 Laboratory test 02/12/2014 C Reactive Protein 5.41 mg/L High < 5.00 23 finding Laboratory test 02/12/2014 D Dimer Quantitative 453 ng/mL High Less Than 24, 25 finding 230 Erythrocyte Sed Rate 10 mm/Hr 0-14 24 Uric Acid 5.9 mg/dL 2.3-6.6 24 CBC Auto Diff 02/12/2014 White Blood Count 7.4 10^3/uL 4.8-10.8 24 Red Blood Count 4.59 10^6/uL 4.0-5.4 24 Hemoglobin 13.3 g/dL 12.0-16.0 24 Hematocrit 39 % 35-47 24 Mean Corpuscular Volume 85 fL 80-97 24 Mean Corpuscular Hemoglobin 29 pg 27-31 24 Mean Corpuscular HGB Conc 34 g/dL 31-36 24 Red Cell Distribution Width 13 % 10.5-15 24 Platelet Count 287 10^3/uL 150-450 24 Mean Platelet Volume 9 um3 7.4-10.4 24 Abs Neutrophils 4.6 10^3/uL 1.5-7.7 24 Abs Lymphocytes 2.1 10^3/uL 1.0-4.8 24 Abs Monocytes 0.4 10^3/uL 0-0.8 24 Abs Eosinophils 0.2 10^3/uL 0-0.6 24 Abs Basophils 0.1 10^3/uL 0-0.2 24 Abs Nucleated RBC 0.01 10^3/uL 24 Granulocyte % 62.2 % 38-83 24 Lymphocyte % 28.8 % 25-47 24 Monocyte % 6.1 % 1-9 24 Eosinophil % 2.1 % 0-6 24 Basophil % 0.8 % 0-2 24 Nucleated Red Blood Cells % 0.1 24 Lyme Western Blot 02/12/2014 Lyme Disease IgG Ab WB Negative Negative 24 Lyme Disease IgG Bands Present No bands detecte <SEE NOTE> 24, 26 kDa Lyme Disease IgM Ab WB Negative Negative 24 Lyme Disease IgM Bands Present No bands detecte <SEE NOTE> 24, 27 kDa Lyme Disease Interpretation See Comment 24, 28 Laboratory test finding 07/08/2013 Vitamin D 1,25-Dihydroxy 48 pg/mL 18- 78 29 Erythrocyte Sed Rate 10 mm/Hr 0-14 C Reactive Protein 0.6 mg/dL High Less than 0.5 Comp Metabolic Panel 07/08/2013 Sodium 139 mmol/L 133-145 Potassium 4.2 mmol/L 3.5-5.0 Chloride 106 mmol/L 101-111 Co2 Carbon Dioxide 27.0 mmol/L 22-32 Anion Gap 6.0 mmol/L 2-11 Glucose 91 mg/dL 70-100 Blood Urea Nitrogen 14 mg/dL 6-24 Creatinine 0.90 mg/dL 0.50-1.40 BUN/Creatinine Ratio 15.6 8-20 Calcium 9.0 mg/dL 8.1-9.9 Total Protein 6.2 g/dL 6.2-8.1 Albumin 3.9 g/dL 3.6-5.4 Globulin 2.3 g/dL 2-4 Albumin/Globulin Ratio 1.7 1-3 Total Bilirubin 0.6 mg/dL 0.4-1.5 Alkaline Phosphatase 51 U/L 30-110 Alt 20 U/L 14-54 Ast 19 U/L 12-42 Egfr Non- 66.8 >60 Egfr 85.9 >60 30 Laboratory test finding 07/08/2013 Uric Acid 7.1 mg/dL 2.6-7.2 CBC Auto Diff 07/08/2013 White Blood Count 7.8 10^3/uL 4.8-10.8 Red Blood Count 4.86 10^6/uL 4.0-5.4 Hemoglobin 14.2 g/dL 12.0-16.0 Hematocrit 42 % 35-47 Mean Corpuscular Volume 86 fL 80-97 Mean Corpuscular Hemoglobin 29 pg 27-31 Mean Corpuscular HGB Conc 34 g/dL 31-36 Red Cell Distribution Width 13 % 10.5-15 Platelet Count 298 10^3/uL 150-450 Mean Platelet Volume 9 um3 7.4-10.4 Abs Neutrophils 5.1 10^3/uL 1.5-7.7 Abs Lymphocytes 2.2 10^3/uL 1.0-4.8 Abs Monocytes 0.4 10^3/uL 0-0.8 Abs Eosinophils 0.1 10^3/uL 0-0.6 Abs Basophils 0 10^3/uL 0-0.2 Abs Nucleated RBC 0 10^3/uL Granulocyte % 65.5 % 38-83 Lymphocyte % 28.2 % 25-47 Monocyte % 4.8 % 1-9 Eosinophil % 1.1 % 0-6 Basophil % 0.4 % 0-2 Nucleated Red Blood Cells % 0 Laboratory test 07/08/2013 Rheumatoid Factor <15 IU/mL <15 31 finding Laboratory test 06/15/2013 D Dimer Quantitative 450 ng/mL High Less Than 230 32 finding CKMB 06/12/2013 CKMB ng/mL 2.8 ng/mL 0.3-4.0 33 CKMB ng/mL 2.8 ng/mL 0.3-4.0 34 Laboratory test finding 06/12/2013 Troponin I 0 ng/mL 0-0.06 35 Lipase 16 U/L Low 22-51 Laboratory test finding 06/12/2013 Magnesium 2.1 mg/dL 1.7-2.6 Comp Metabolic Panel 06/12/2013 Sodium 135 mmol/L 133-145 Potassium 4.8 mmol/L 3.5-5.0 Chloride 101 mmol/L 101-111 Co2 Carbon Dioxide 25.0 mmol/L 22-32 Anion Gap 9.0 mmol/L 2-11 Glucose 98 mg/dL 70-100 Blood Urea Nitrogen 11 mg/dL 6-24 Creatinine 0.60 mg/dL 0.50-1.40 BUN/Creatinine Ratio 18.3 8-20 Calcium 9.9 mg/dL 8.1-9.9 Total Protein 8.0 g/dL 6.2-8.1 Albumin 4.4 g/dL 3.6-5.4 Globulin 3.6 g/dL 2-4 Albumin/Globulin Ratio 1.2 1-3 Total Bilirubin 1.3 mg/dL 0.4-1.5 Alkaline Phosphatase 50 U/L 30-110 Alt 24 U/L 14-54 Ast 35 U/L 12-42 Egfr Non- 106.7 >60 Egfr 137.2 >60 36 Laboratory test 06/12/2013 D Dimer Quantitative 561 ng/mL High Less Than 230 37 finding B Type Natriuretic Peptide 49.0 pg/mL 0-100 CBC Auto Diff 06/12/2013 White Blood Count 6.6 10^3/uL 4.8-10.8 Red Blood Count 5.14 10^6/uL 4.0-5.4 Hemoglobin 14.5 g/dL 12.0-16.0 Hematocrit 44 % 35-47 Mean Corpuscular Volume 86 fL 80-97 Mean Corpuscular Hemoglobin 28 pg 27-31 Mean Corpuscular HGB Conc 33 g/dL 31-36 Red Cell Distribution Width 13 % 10.5-15 Platelet Count 286 10^3/uL 150-450 Mean Platelet Volume 9 um3 7.4-10.4 Abs Neutrophils 4.3 10^3/uL 1.5-7.7 Abs Lymphocytes 1.8 10^3/uL 1.0-4.8 Abs Monocytes 0.3 10^3/uL 0-0.8 Abs Eosinophils 0.1 10^3/uL 0-0.6 Abs Basophils 0 10^3/uL 0-0.2 Abs Nucleated RBC 0 10^3/uL Granulocyte % 64.7 % 38-83 Lymphocyte % 27.7 % 25-47 Monocyte % 4.8 % 1-9 Eosinophil % 2.2 % 0-6 Basophil % 0.6 % 0-2 Nucleated Red Blood Cells % 0 Laboratory test finding 08/18/2012 TSH (Thyroid Stimulating 1.52 MIU/ML 0.34-5.60 38 Horm) CBC Auto Diff 08/18/2012 White Blood Count 5.0 10^3/uL 4.8-10.8 Red Blood Count 4.91 10^6/uL 4.0-5.4 Hemoglobin 14.2 g/dL 12.0-16.0 Hematocrit 42 % 35-47 Mean Corpuscular Volume 86 fL 80-97 Mean Corpuscular Hemoglobin 29 pg 27-31 Mean Corpuscular HGB Conc 33 g/dL 31-36 Red Cell Distribution Width 13 % 10.5-15 Platelet Count 305 10^3/uL 150-450 Mean Platelet Volume 9 um3 7.4-10.4 Abs Neutrophils 2.9 10^3/uL 1.5-7.7 Abs Lymphocytes 1.5 10^3/uL 1.0-4.8 Abs Monocytes 0.3 10^3/uL 0-0.8 Abs Eosinophils 0.3 10^3/uL 0-0.6 Abs Basophils 0 10^3/uL 0-0.2 Abs Nucleated RBC 0 10^3/uL Granulocyte % 58.9 % 38-83 Lymphocyte % 29.6 % 25-47 Monocyte % 5.7 % 1-9 Eosinophil % 5.1 % 0-6 Basophil % 0.7 % 0-2 Nucleated Red Blood Cells % 0.1 Comp Metabolic Panel 08/18/2012 Sodium 137 mmol/L 133-145 Potassium 4.3 mmol/L 3.5-5.0 Chloride 107 mmol/L 101-111 Co2 Carbon Dioxide 28.0 mmol/L 22-32 Anion Gap 2.0 mmol/L 2-11 Glucose 96 mg/dL 70-100 Blood Urea Nitrogen 16 mg/dL 6-24 Creatinine 0.80 mg/dL 0.50-1.40 BUN/Creatinine Ratio 20.0 8-20 Calcium 9.2 mg/dL 8.1-9.9 Total Protein 6.5 GM/DL 6.2-8.1 Albumin 4.1 GM/DL 3.6-5.4 Globulin 2.4 GM/DL 2-4 Albumin/Globulin Ratio 1.7 1-3 Total Bilirubin 0.6 mg/dL 0.1-1.0 39 Alkaline Phosphatase 55 U/L 30-110 Alt 25 U/L 14-54 Ast 24 U/L 12-42 Egfr Non- 76.6 >60 Egfr 98.5 >60 40 Lipid Profile (Trig/Chol/HDL) 08/18/2012 Triglycerides 81 mg/dL 40-200 Cholesterol 182 mg/dL Less than 200 HDL Cholesterol 75 mg/dL High 40-60 41 Cholesterol/HDL Ratio 2.4 AVERAGE 1-4.44 LDL Cholesterol 90.8 mg/dL Less Than 100 42 Ua Inhouse 08/13/2012 Ua Glucose - Ua Bilirubin sm Ua Ketones - Ua Specific [place] 1.020 Ua Blood - Ua PH 6.0 Ua Protein tr Ua Urobilinogen - Ua Nitrite - Ua Leukocytes - Laboratory test finding 08/13/2012 Cytology RUN DATE: <SEE NOTE&gt ; 43 Urine Micro Inhouse 05/28/2010 Ua WBC 2-3 Ua RBC - Ua Casts - Ua Epi tntc Ua Other some bacteria Ua Glucose - Ua Bilirubin - Ua Ketones - Ua Specific [place] 1.020 Ua Blood - Ua PH 6.0 Ua Protein - Ua Urobilinogen - Ua Nitrite - Ua Leukocytes - Lipid Profile (Trig/Chol/HDL) 05/01/2009 Triglyceride 62 mg/dL 40-200 Cholesterol 152 mg/dL Less Than 200 44 High Density Lipoprotein 66 mg/dL High 40-60 45 Cholesterol/HDL Ratio 2.30 AVERAGE 1-4.44 Low Density Lipoprotein 74 mg/dL Less Than 100 46 CBC With Manual Diff 05/01/2009 White Blood Count 5.4 CUMM 4.8-10.8 Red Cell Count 4.69 CUMM 4.2-5.4 Hemoglobin 13.6 g/dL 12.0-16.0 Hematocrit 40 % 35-47 Mean Corpuscular Volume 85 um3 79-97 Mean Corpuscular Hemoglob 29 pg 27-31 Mean Corpuscular HGB Cone 34 g/dL 32-36 Redcell Distribution WDTH 12 % 10.5-15 Platelet Count 314 CUMM 150-450 Mean Platelet Volume 8.2 um3 7.4-10.4 Polysegmented Neutrophil 45 % 38-83 Band Neutrophil 2 % 0-8 Lymphocyte 41 % 25-47 Monocyte 7 % 0-13 Eosenophil 3 % 0-6 Atypical Lymph 2 % 0-6 Absolute Neutrophil Count 2.5 Anisocytosis SLIGHT Comp Metabolic Panel 05/01/2009 Sodium 136 mmol/L 135-145 Potassium 4.2 mmol/L 3.5-5.0 Chloride 105 mmol/L 101-111 Co2 (Carbon Dioxide) 27.0 mmol/L 22-32 Anion Gap 4.0 mmol/L 2-11 47 Glucose 90 mg/dL 70-100 48 BUN 15 mg/dL 6-24 Creatinine 0.80 mg/dL 0.50-1.40 One Over Creatinine 1.20 BUN/Creatinine Ratio 18.8 8-20 Calcium 9.1 mg/dL 8.1-9.9 49 Total Protein 6.6 GM/DL 6.2-8.1 Albumin 4.0 GM/DL 3.6-5.4 Globulin 2.6 GM/DL 2-4 Albumin/Globulin Ratio 1.5 1-3 Bilirubin Total 0.9 mg/dL 0.4-1.5 50 Alkaline Phosphatase 44 U/L 30-110 Alt (SGPT) 22 U/L 14-54 Ast (Sgot) 19 U/L 12-42 eGFR Non- 82.8 > 60 eGFR 100.2 > 60 51 Laboratory test finding 05/01/2009 TSH 0.68 MIU/ML 0.34-5.60 Laboratory test finding 03/12/2009 Cytology <SEE 52 NOTE> Laboratory test finding 09/26/2008 Clotest N^NEGATIVE^HEIDI Ua Inhouse 07/18/2008 Ua Glucose - Ua Bilirubin - Ua Ketones - Ua Specific [place] 1.025 Ua Blood - Ua PH 6.0 Ua Protein - Ua Urobilinogen - Ua Nitrite - Ua Leukocytes - Urine Micro Inhouse 04/18/2008 Urine Microscopic Inhouse see result notes 53 Ua Inhouse 04/18/2008 Ua Glucose - 53 Ua Bilirubin - 53 Ua Ketones - 53 Ua Specific [place] 1.020 53 Ua Blood lg 53 Ua PH 6.5 53 Ua Protein + 53 Ua Urobilinogen - 53 Ua Nitrite - 53 Ua Leukocytes mod 53 Culture Urine Inhouse 04/18/2008 Colonies 07/13 both paddles 53 Laboratory test finding 10/23/2006 Erythrocyte Sed Rate 3 MM/HR 0-15 C Reactive Protein < 0.5 mg/dL Less Than 0.5 CBC With Manual Diff 10/23/2006 White Blood Count 5.2 CUMM 4.8-10.8 Absolute Neutrophil Count 3.5 Anisocytosis SLIGHT Band Neutrophil 5 % 0-8 Hematocrit 42 % 35-47 Hemoglobin 14.7 g/dL 12.0-16.0 Eosenophil 1 % 0-6 Lymphocyte 25 % 5-47 Mean Corpuscular HGB Cone 35 g/dL 32-36 Mean Corpuscular Hemoglob 28 pg 27-31 Mean Corpuscular Volume 81 um3 79-97 Monocyte 5 % 0-13 Mean Platelet Volume 8.5 um3 7.4-10.4 Platelet Count 332 CUMM 150-450 Polysegmented Neutrophil 64 % 38-83 Red Cell Count 5.22 CUMM 4.2-5.4 Redcell Distribution WDTH 13 % 10.5-15 Barbara (Antinuclear 10/23/2006 Antinuclear AB NEGATIVE Negative Antibodies) Laboratory test finding 10/23/2006 Rheumatoid Factor 23.9 IU/mL High Less Than 20 Basic Metabolic Panel 10/23/2006 One Over Creatinine 1.11 Anion Gap 2.0 mmol/L 2-11 54 BUN 10 mg/dL 6-24 Calcium 9.7 mg/dL 8.7-10.2 Chloride 104 mmol/L 101-111 Co2 (Carbon Dioxide) 32.0 mmol/L 22-32 Glucose 100 mg/dL 70-105 Potassium 4.4 mmol/L 3.5-5.0 Sodium 138 mmol/L 135-145 BUN/Creatinine Ratio 11.1 8-20 Creatinine 0.9 mg/dL 0.5-1.4 CMP 06/26/2006 One Over Creatinine 0.90 55 Anion Gap 8.0 mmol/L 2-11 55, 56 Albumin/Globulin Ratio 1.3 1-3 55 Albumin 4.0 GM/DL 3.6-5.4 55 Alkaline Phosphatase 53 U/L 30-110 55 Alt (SGPT) 43 U/L 14-54 55 Ast (Sgot) 50 U/L High 12-42 55 BUN 9 mg/dL 6-24 55 Calcium 9.7 mg/dL 8.7-10.2 55 Chloride 97 mmol/L Low 101-111 55 Co2 (Carbon Dioxide) 30.0 mmol/L 22-32 55 Globulin 3.2 GM/DL 2-4 55 Glucose 108 mg/dL High 70-105 55 Potassium 4.4 mmol/L 3.5-5.0 55 Sodium 135 mmol/L 135-145 55 Bilirubin Total 0.9 mg/dL 0.4-1.5 55 Total Protein 7.2 GM/DL 6.2-8.1 55 BUN/Creatinine Ratio 8.2 8-20 55 Creatinine 1.1 mg/dL 0.5-1.4 55 CBC With Electronic Diff 06/26/2006 White Blood Count 9.2 CUMM 4.8-10.8 55 Abs Basophils 0 0-0.2 55 Abs Eosinophils 0.1 0-0.6 55 Absolute Neutrophil Count 6.9 1.5-7.7 55 Abs Lymphs 1.6 1.0-4.8 55 Abs Mononuclear 0.5 0-0.8 55 Basophil % 0.4 % 0-2 55 Hematocrit 39 % 35-47 55 Definitive Flag 1 55, 57 Hemoglobin 13.2 g/dL 12.0-16.0 55 Eosinophil % 1.3 % 0-6 55 Gran % 75.7 % 38-83 55 Lymph % 17.0 % Low 20-45 55 Mean Corpuscular HGB Cone 34 g/dL 32-36 55 Mean Corpuscular Hemoglob 29 pg 27-31 55 Mean Corpuscular Volume 85 um3 79-97 55 Mean Platelet Volume 8.7 um3 7.4-10.4 55 Mononuclear % 5.6 % 1-9 55 Platelet Count 340 CUMM 150-450 55 Red Cell Count 4.59 CUMM 4.2-5.4 55 Redcell Distribution WDTH 13 % 10.5-15 55 Urinalysis Stat 06/26/2006 Ua Color STRAW 55 Appearance-Urine CLEAR 55 Bilirubin-Ur NEGATIVE Negative 55 Blood-Urine NEGATIVE Negative 55 Esterase-Urine NEGATIVE Negative 55 Glucose-Urine NEGATIVE Negative 55 Ketones-Urine NEGATIVE Negative 55 Nitrite NEGATIVE Negative 55 PH-Urine 8.0 5-9 55 Protein-Urine NEGATIVE Negative 55 Rllwggeuixye-Og-XJH NEGATIVE Negative 55 Specific [place]-Ur 1.010 1.010-1.030 55 Laboratory test 06/26/2006 Blood Culture NG5 55, 58 finding Surgical Pathology 06/20/2006 Surgical Pathology 59 - <SEE NOTE> CBC With Electronic 06/14/2006 White Blood Count 5.2 CUMM 4.8-10.8 60 Diff Abs Basophils 0 0-0.2 60 Abs Eosinophils 0 0-0.6 60 Absolute Neutrophil Count 3.1 1.5-7.7 60 Abs Lymphs 1.7 1.0-4.8 60 Abs Mononuclear 0.3 0-0.8 60 Basophil % 0.4 % 0-2 60 Hematocrit 43 % 35-47 60 Hemoglobin 14.7 g/dL 12.0-16.0 60 Eosinophil % 0.8 % 0-6 60 Gran % 60.0 % 38-83 60 Lymph % 33.0 % 20-45 60 Mean Corpuscular HGB Cone 35 g/dL 32-36 60 Mean Corpuscular Hemoglob 29 pg 27-31 60 Mean Corpuscular Volume 84 um3 79-97 60 Mean Platelet Volume 8.4 um3 7.4-10.4 60 Mononuclear % 5.8 % 1-9 60 Platelet Count 325 CUMM 150-450 60 Red Cell Count 5.08 CUMM 4.2-5.4 60 Redcell Distribution WDTH 13 % 10.5-15 60 Type And Screen 06/14/2006 Patient Blood Type O POSITIVE 60 Specimen Discard Date 06/28/06 60, 61 Antibody Screen NEGATIVE 60 Sputum Acid Fast 04/21/2006 Acid Fast Stain - Due to limited s 62 Bacteria Direct <SEE NOTE> Laboratory test finding 04/21/2006 Sputum Culture NORMAL RESPIRATO 63 Sensitiv <SEE NOTE> Sputum Smear R^RARE^EPI 64 Laboratory test finding 04/15/2006 Sputum Culture NORMAL RESPIRATO 65 Sensitiv <SEE NOTE> Sputum Smear MIXED ORGANISMS <SEE NOTE> 66 Sputum Acid Fast 04/15/2006 Acid Fast Stain - Due to limited s 67 Bacteria Direct <SEE NOTE> 1 Because ethnic data is not always readily available, this report includes an eGFR for both -Americans and non- Americans. The National Kidney Disease Education Program (NKDEP) does not endorse the use of the MDRD equation for patients that are not between the ages of 18 and 70, are , have extremes of body size, muscle mass, or nutritional status, or are non- or non-. According to the National Kidney Foundation, irrespective of diagnosis, the stage of the disease is based on the level of kidney function: Stage Description GFR(mL/min/1.73 m(2)) 1 Kidney damage with normal or decreased GFR 90 2 Kidney damage with mild decrease in GFR 60-89 3 Moderate decrease in GFR 30-59 4 Severe decrease in GFR 15-29 5 Kidney failure <15 (or dialysis) 2 [id number] 3 SEE RESULT BELOW Name: YIN CASTRO : [address]: Óscar Sparks MD Acct: [id number] Unit: [id number] AGE: 52 Location: [facility] Re10/30/17 SEX: F Status: DEP REF SPEC: [id number] FEI: 10/30/17- SUBM DR: Óscar Sparks MD REQ: [id number] RECD: 10/30/173 STATUS: LUIS REHMAN DR: Radha Negrete [facility] _ ORDERED: LEVEL 4 COMMENTS: [id number] FINAL DIAGNOSIS Colon, sigmoid at 25 cm, biopsy: -- Tubular adenoma. -- No high grade dysplasia or malignancy. CLINICAL HISTORY Screening/Surveillance for malignancy in asymptomatic patient. Family history ? mother ? congestive heart failure April 2017 POST-OPERATIVE DIAGNOSIS Colonoscopy to cecum with ease. Conclusions/Plan: Sigmoid polyp - 1; 5 years GROSS DESCRIPTION The specimen is received in formalin labeled, Sigmoid Colon Polyp at 25 cm, and consists of a 0.9 x 0.5 x 0.3 cm aggregate of mejia-red irregular to polypoid soft tissue fragments which is submitted entirely in one cassette. Signed (signature on file) Isela Valle MD 1124 END OF REPORT * ML=Testing performed at Main Lab DEPARTMENT OF PATHOLOGY, [address] [place] [address] Gordon Solano M.D. Director [facility] # [id number] 4 void, clear, yellow 5 Serologic response to B. burgdorferi infection is not detected, but cannot rule out early infection during which low or undetectable antibody levels to B. burgdorferi may be present. If clinically indicated, a new serum specimen should be submitted in 7-14 days. Test Performed by: [address] [address] Awning Installer: Angeles Kam II, M.D., Ph.D. 6 REFERENCE VALUE <=1.0 (Negative) Test Performed by: [facility] [place] [address] Awning Installer: Angeles Kam II, M.D., Ph.D. 7 Test Performed by: [facility] [place] [address] Awning Installer: Angeles Kam II, M.D., Ph.D. 8 REFERENCE VALUE <20.0 (Negative) Test Performed by: [place] [address] Awning Installer: Angeles Kam II, M.D., Ph.D. 9 Because ethnic data is not always readily available, this report includes an eGFR for both -Americans and non- Americans. The National Kidney Disease Education Program (NKDEP) does not endorse the use of the MDRD equation for patients that are not between the ages of 18 and 70, are , have extremes of body size, muscle mass, or nutritional status, or are non- or non-. According to the National Kidney Foundation, irrespective of diagnosis, the stage of the disease is based on the level of kidney function: Stage Description GFR(mL/min/1.73 m(2)) 1 Kidney damage with normal or decreased GFR 90 2 Kidney damage with mild decrease in GFR 60-89 3 Moderate decrease in GFR 30-59 4 Severe decrease in GFR 15-29 5 Kidney failure <15 (or dialysis) 10 Because ethnic data is not always readily available, this report includes an eGFR for both -Americans and non- Americans. The National Kidney Disease Education Program (NKDEP) does not endorse the use of the MDRD equation for patients that are not between the ages of 18 and 70, are , have extremes of body size, muscle mass, or nutritional status, or are non- or non-. According to the National Kidney Foundation, irrespective of diagnosis, the stage of the disease is based on the level of kidney function: Stage Description GFR(mL/min/1.73 m(2)) 1 Kidney damage with normal or decreased GFR 90 2 Kidney damage with mild decrease in GFR 60-89 3 Moderate decrease in GFR 30-59 4 Severe decrease in GFR 15-29 5 Kidney failure <15 (or dialysis) 11 Because ethnic data is not always readily available, this report includes an eGFR for both -Americans and non- Americans. The National Kidney Disease Education Program (NKDEP) does not endorse the use of the MDRD equation for patients that are not between the ages of 18 and 70, are , have extremes of body size, muscle mass, or nutritional status, or are non- or non-. According to the National Kidney Foundation, irrespective of diagnosis, the stage of the disease is based on the level of kidney function: Stage Description GFR(mL/min/1.73 m(2)) 1 Kidney damage with normal or decreased GFR 90 2 Kidney damage with mild decrease in GFR 60-89 3 Moderate decrease in GFR 30-59 4 Severe decrease in GFR 15-29 5 Kidney failure <15 (or dialysis) 12 Because ethnic data is not always readily available, this report includes an eGFR for both -Americans and non- Americans. The National Kidney Disease Education Program (NKDEP) does not endorse the use of the MDRD equation for patients that are not between the ages of 18 and 70, are , have extremes of body size, muscle mass, or nutritional status, or are non- or non-. According to the National Kidney Foundation, irrespective of diagnosis, the stage of the disease is based on the level of kidney function: Stage Description GFR(mL/min/1.73 m(2)) 1 Kidney damage with normal or decreased GFR 90 2 Kidney damage with mild decrease in GFR 60-89 3 Moderate decrease in GFR 30-59 4 Severe decrease in GFR 15-29 5 Kidney failure <15 (or dialysis) 13 PT IS FASTING 14 Desirable <150 Borderline high 150-199 High 200-499 Very High >500 15 Desirable <200 Borderline high 200-239 High >239 16 Low <40 Desirable: 40-60 High: >60 17 Desirable: <100 mg/dL Near Optimal: 100-129 mg/dL Borderline High: 130-159 mg/dL High: 160-189 mg/dL Very High: >189 mg/dL 18 Because ethnic data is not always readily available, this report includes an eGFR for both -Americans and non- Americans. The National Kidney Disease Education Program (NKDEP) does not endorse the use of the MDRD equation for patients that are not between the ages of 18 and 70, are , have extremes of body size, muscle mass, or nutritional status, or are non- or non-. According to the National Kidney Foundation, irrespective of diagnosis, the stage of the disease is based on the level of kidney function: Stage Description GFR(mL/min/1.73 m(2)) 1 Kidney damage with normal or decreased GFR 90 2 Kidney damage with mild decrease in GFR 60-89 3 Moderate decrease in GFR 30-59 4 Severe decrease in GFR 15-29 5 Kidney failure <15 (or dialysis) 19 Acute inflammation: >10.00 20 Serologic response to B. burgdorferi infection is not detected, but cannot rule out early infection during which low or undetectable antibody levels to B. burgdorferi may be present. If clinically indicated, a new serum specimen should be submitted in 7-14 days. Test Performed by: [place] [address] Awning Installer: Arden Rosenberg M.D. 21 Test Performed by: [place] [address] Awning Installer: Arden Rosenberg M.D. 22 Because ethnic data is not always readily available, this report includes an eGFR for both -Americans and non- Americans. The National Kidney Disease Education Program (NKDEP) does not endorse the use of the MDRD equation for patients that are not between the ages of 18 and 70, are , have extremes of body size, muscle mass, or nutritional status, or are non- or non-. According to the National Kidney Foundation, irrespective of diagnosis, the stage of the disease is based on the level of kidney function: Stage Description GFR(mL/min/1.73 m(2)) 1 Kidney damage with normal or decreased GFR 90 2 Kidney damage with mild decrease in GFR 60-89 3 Moderate decrease in GFR 30-59 4 Severe decrease in GFR 15-29 5 Kidney failure <15 (or dialysis) 23 Acute inflammation: >10.00 24 (DL aware of D-Dimer, see "after-Hours Care" triage) SL 25 Please note: The following may produce a false positive D Dimer test: - Rheumatoid factor greater than 60 IU/ml - Plasma hemoglobin greater than 0.05 gm/dl - Bilirubin greater than 50 mg/dl - Lipids greater than 1000 mg/dl - FDP greater than 20 ug/ml 26 No bands detected 27 No bands detected 28 Specific serologic response to B. burgdorferi infection is not detected, but cannot rule out early infection during which low or undetectable antibody levels to B. burgdorferi may be present. If clinically indicated, a new serum specimen should be submitted in 7-14 days. CDC criteria require >=5 bands for IgG or >=2 bands for IgM for the Immunoblot to be considered positive. Bands (e.g.,p41) may be detected in patients without Lyme disease, and patterns not meeting the CDC criteria should be interpreted with caution. Immunoblot should be ordered only on specimens that are positive or equivocal by a FDA-licensed Lyme disease antibody screening test (e.g., EIA). Test Performed by: [place] [address] Awning Installer: Brian Weiss III, M.D. 29 Test Performed by: [place] [address] Awning Installer: Brian Weiss III, M.D. 30 Because ethnic data is not always readily available, this report includes an eGFR for both -Americans and non- Americans. The National Kidney Disease Education Program (NKDEP) does not endorse the use of the MDRD equation for patients that are not between the ages of 18 and 70, are , have extremes of body size, muscle mass, or nutritional status, or are non- or non-. According to the National Kidney Foundation, irrespective of diagnosis, the stage of the disease is based on the level of kidney function: Stage Description GFR(mL/min/1.73 m(2)) 1 Kidney damage with normal or decreased GFR 90 2 Kidney damage with mild decrease in GFR 60-89 3 Moderate decrease in GFR 30-59 4 Severe decrease in GFR 15-29 5 Kidney failure <15 (or dialysis) 31 Test Performed by: [place] [address] Awning Installer: Brian Weiss III, M.D. 32 Consistent with previous results. Please note: The following may produce a false positive D Dimer test: - Rheumatoid factor greater than 60 IU/ml - Plasma hemoglobin greater than 0.05 gm/dl - Bilirubin greater than 50 mg/dl - Lipids greater than 1000 mg/dl - FDP greater than 20 ug/ml 33 CKMB interpretation should be made in conjunction with clinical symptoms, patient history and EKG changes. 34 CKMB interpretation should be made in conjunction with clinical symptoms, patient history and EKG changes. 35 Reference Range and Interpretation: TnI (ng/mL) Interpretation Less Than 0.06 ng/mL Not supportive of diagnosis of MA 0.06 - 0.50 ng/mL Indeterminate: suggest serial studies if clinically indicated. Greater than 0.5 ng/mL Consistent with diagnosis of MA 36 Because ethnic data is not always readily available, this report includes an eGFR for both -Americans and non- Americans. The National Kidney Disease Education Program (NKDEP) does not endorse the use of the MDRD equation for patients that are not between the ages of 18 and 70, are , have extremes of body size, muscle mass, or nutritional status, or are non- or non-. According to the National Kidney Foundation, irrespective of diagnosis, the stage of the disease is based on the level of kidney function: Stage Description GFR(mL/min/1.73 m(2)) 1 Kidney damage with normal or decreased GFR 90 2 Kidney damage with mild decrease in GFR 60-89 3 Moderate decrease in GFR 30-59 4 Severe decrease in GFR 15-29 5 Kidney failure <15 (or dialysis) 37 Verbal to Rocio Frazier RN by [id number] at 1251 on 06/12/13. Results read back accurately. Please note: The following may produce a false positive D Dimer test: - Rheumatoid factor greater than 60 IU/ml - Plasma hemoglobin greater than 0.05 gm/dl - Bilirubin greater than 50 mg/dl - Lipids greater than 1000 mg/dl - FDP greater than 20 ug/ml 38 PT IS FASTING 39 A metabolite of Naproxen, O-desmethylnaproxen, has been shown to interfere with the Jendrassik-Polo method for measuring total bilirubin. Samples from patients who have taken Naproxen have shown spurious elevation in total bilirubin levels. 40 Because ethnic data is not always readily available, this report includes an eGFR for both -Americans and non- Americans. The National Kidney Disease Education Program (NKDEP) does not endorse the use of the MDRD equation for patients that are not between the ages of 18 and 70, are , have extremes of body size, muscle mass, or nutritional status, or are non- or non-. According to the National Kidney Foundation, irrespective of diagnosis, the stage of the disease is based on the level of kidney function: Stage Description GFR(mL/min/1.73 m(2)) 1 Kidney damage with normal or decreased GFR 90 2 Kidney damage with mild decrease in GFR 60-89 3 Moderate decrease in GFR 30-59 4 Severe decrease in GFR 15-29 5 Kidney failure <15 (or dialysis) 41 HDL Interpretation: Undesirable: High Risk: Less than 40 MG/DL Desirable: Low Risk: Greater than 60 MG/DL 42 LDL Interpretation: Low Risk Optimal Level: LDL Less than 100 MG/DL Near or Above Optimal: LDL 100-129 MG/DL Borderline High Risk: LDL 130-159 MG/DL High Risk: LDL 160-189 MG/DL Very High Risk: LDL Greater than 189 MG/DL 43 RUN DATE: 08/15/12 [facility] LAB LIVE PAGE 1 RUN TIME: [address] [place] [address] Specimen Inquiry Name: YIN CASTRO : [address]: Cee Astorga PA Acct: [id number] Unit: [id number] AGE: 47 Location: [facility] Re08/13/12 SEX: F Status: REG REF SPEC: [id number] FEI: 08/13/12-[address]: Cee Astorga PA REQ: [id number] RECD: 08/15/12 STATUS: SOUT _ ORDERED: IMAGE ANALYSIS Negative for Intraepithelial lesion or Malignancy A. Vaginal Specimen Adequacy: Satisfactory of evaluation Patient Information: HPV: Thin Layer Pap Test w/reflex to high risk HPV DNA testing when ASCUS Actual Specimen Date: 08/13/12 LMP If Unknown: Last Menstrual Period Unknown Cautery: N IUD: N ?: N Post Menopausal?: N Hysterectomy?: Y Other Pertinent History: hysterectomy 06/20/06 Signed (signature on file) MADISYN Barlow (ASCP) 08/15 1254 This Pap test was evaluated with the assistance of the ThinPrep Test Imaging System. Due to cytologic findings at the topology teacher microscope, comprehensive manual rescreening by a Landmen may be required. The Pap Smear is a screening test designed to aid in the detection of premalignant and malignant conditions of the uterine cervix. It is not a diagnostic procedure and should not be used as the sole means of detecting cervical cancer. Both false- positive and false- negative reports do occur. Depending on your risk status, a Pap smear shoudl be obtained and evaluated every 1-3 years. END OF REPORT * ML=Testing performed at Main Lab DEPARTMENT OF PATHOLOGY, [address] [place] [address] Gordon Solano M.D. Director [facility] Permit #[id number] CHOLESTEROL INTERPRETATION: Desirable: Less than 200 MG/DL Borderline-High Risk: 200-239 MG/DL High-Risk: 240 MG/DL and over 45 HDL INTERPRETATION: Undesirable: High Risk: Less than 40 MG/DL Desirable: Low Risk: Greater than 60 MG/DL 46 LDL INTERPRETATION: Low Risk Optimal Level: LDL Less than 100 MG/DL Near or Above Optimal: LDL 100-129 MG/DL Borderline High Risk: LDL 130-159 MG/DL High Risk: LDL 160-189 MG/DL Very High Risk: LDL Greater than 189 MG/DL 47 Anion gap measurement may be of limited value in the presence of any alkalosis, especially in a combined acid base disorder. . 48 Note change in reference range as of 05/29/08. The change was based on recommendations from the [place] [employer]. 49 Please note change in reference range effective 08 . 50 A metabolite of Naproxen, O-desmethylnaproxen, has been shown to interfere with the Jendrassik-Polo method for measuring total bilirubin. Samples from patients who have taken Naproxen have shown spurious elevation in total bilirubin levels. 51 Because ethnic data is not always readily available, this report includes an eGFR for both -Americans and non- Americans. The National Kidney Disease Education Program (NKDEP) does not endorse the use of the MDRD equation for patients that are not between the ages of 18 and 70, are , have extremes of body size, muscle mass, or nutritional status, or are non- or non-. According to the National Kidney Foundation, irrespective of diagnosis, the stage of the disease is based on the level of kidney function: Stage Description GFR(mL/min/1.73 m(2)) 1 Kidney damage with normal or decreased GFR 90 2 Kidney damage with mild decrease in GFR 60-89 3 Moderate decrease in GFR 30-59 4 Severe decrease in GFR 15-29 5 Kidney failure <15 (or dialysis) 52 ---- RUN DATE: 03/13/09 [facility] NMI LIVE PAGE 1 RUN TIME: 1212 Specimen Inquiry RUN USER: INTERFACE -- Name: YIN CASTRO Status: REG REF Re03/12/09 Age/Sex: 43/F Unit#: [id number] Location: [facility] : 63 -- Specimen: [id number] SOUT Spec Date: 03/12/[address]: Bree cook MD Spec Type: CYTOLOGY Received: 03/13/09 Copies to: SOURCE ECTOCERVICAL/ENDOCERVICAL Thin Prep with Reflex HPV Test PATIENT INFORMATION ACTUAL COLLECTION DATE: 03/12/09 ? No POST MENOPAUSAL? No HYSTERECTOMY? Yes PATIENT HISTORY: Hysterectomy 06/20/06 ADEQUACY OF SPECIMEN Satisfactory for evaluation * COMPUTER HISTORY SHOWS HYSTERECTOMY WITH CERVIX REMOVED. DIAGNOSIS NEGATIVE FOR INTRAEPITHELIAL LESION OR MALIGNANCY * This Pap test was evaluated with the assistance of the ThinPrep Pap Test Imaging System. The Pap Smear is a screening test designed to aid in the detection of premalign ant and malignant conditions of the uterine cervix. It is not a diagnostic procedure a nd should not be used as the sole means of detecting cervical cancer. Both false- positiv e and false-negative reports do occur. Depending on your risk status, a Pap smear sofie uld be obtained and evaluated every one to three years. Initial evaluation performed by Audrey CULLEN([facility]) 03/13/09 Final Interpretation electronically signed by: Audrey CULLEN([facility]) 03/13/09 1211 -- -- DEPARTMENT OF PATHOLOGY, [address] [place] [address] [facility] Permit #[id number] Gordon Solano M.D. Director Anita Milner M.D. First Helper Dir jenna -- 53 wbc tntc, rbc 5-10, epi 5-10, bacteria 54 Anion gap measurement may be of limited value in the presence of any alkalosis, especially in a combined acid base disorder. . 55 IS PATIENT A DIABETIC? N 56 Anion gap measurement may be of limited value in the presence of any alkalosis, especially in a combined acid base disorder. . 57 Lymphopenia % 58 NO GROWTH AFTER 5 DAYS 59 ---- RUN DATE: 06/22/06 [facility] NMI LIVE PAGE 1 RUN TIME: 1203 Specimen Inquiry RUN USER: INTERFACE [id number] YIN CASTRO 40/F <DIS IN 06/22> ([id number]) [phone] 3PD Brendan Mckeon MD. -- Specimen: [id number] SOUT Spec Date: 06/20/[address]: Meño Mckeon MD Spec Type: SURGICAL P Received: 06/21/06-6593 Copies to: Bree Henderson MD. SPECIMEN UTERUS AND CERVIX HISTORY PRE-OP DIAGNOSIS: Pelvic pain, pelvic prolapse, urinary incontinence GROSS DESCRIPTION The specimen is received in formalin labelled "Yin Castro, Uterus + Cervix" and consists of a 106 gram uterus and attached cervix. The specimen measures 9.0 x 5.0 x 4.0 cm. with the cervical portion measuring 4.0 x 3.7 x 3.0 cm. The ectocervix is light pink-white and the serosal surface of the uterus is smooth and mejia. On bivalving the endometrial cavity is regular in outline with a soft pink-red endometrium measuring up to 0.2 cm. in depth. On serial sectioning no leiomyomas are noted in the endomyometrium. Rv Repairer sections are submitted in three blocks labelled A through C as follows: A - full thickness anterior and posterior cervical sections, B and C - full thickness anterior and posterior endomyometrial sections. DIAGNOSIS Uterus, hysterectomy - A) Cervix with chronic cystic cervicitis and squamous metaplasia. B) Benign proliferative phase endometrium. C) No hyperplasia, dysplasia, or malignancy. Signed Electronically signed ANGELES SERRANO MD 06/22/06 -- -- DEPARTMENT OF PATHOLOGY, [address] [place] [address] [facility] Permit #[id number] Angeles Serrano II, M.D. Director Gordon Solano M.D. First Helper D irector -- 60 [facility] 06/20/06 61 PREADMISSION TESTING SAMPLES FOR BLOOD BANK WILL BE HELD FOR 14 DAYS FROM THE DATE OF COLLECTION *IF* THE FOLLOWING CRITERIA ARE MET: 1) THE PATIENT HAS *NOT* BEEN IN THE LAST 3 MONTHS. 2) THE PATIENT HAS *NOT* BEEN TRANSFUSED IN THE LAST 3 MONTHS. PREADMISSION TESTING SAMPLES WILL *NOT* BE HELD FOR 14 DAYS FROM PATIENTS WHO IN THE LAST 3 MONTHS: 1) HAVE BEEN 2) HAVE BEEN TRANSFUSED THESE PATIENTS *MUST* BE COLLECTED WITHIN 3 DAYS OF THE SURGERY DATE. 62 Due to limited sensitivity of the smear, results should be used as an adjunct in evaluating the patient's status and cultural examination is highly recommended for diagnosis. NAF^NO AFB OBSERVED^AFS 63 NORMAL RESPIRATORY STACIE 64 MOD GPC^MOD GRAM POS COCCI^SM BDS^BY DIRECT SMEAR^SM R^RARE^WBC 65 NORMAL RESPIRATORY STACIE 66 MIXED ORGANISMS SUGGESTIVE OF NORMAL RESPIRATORY STACIE M^MANY^EPI M^MANY^WBC 67 Due to limited sensitivity of the smear, results should be used as an adjunct in evaluating the patient's status and cultural examination is highly recommended for diagnosis. NAF^NO AFB OBSERVED^AFS Procedures Date CPT Code Description Status Comment 10/30/2017 Colonoscopy Completed 10/30/17: sigmoid polyp(TA)--f/u 5 years,Document: 10/30/17 - Colonoscopy 04/2007 normal 08/09/2017 Mammogram Completed 2016:negative 2014:normal Patient prefers to screen every 1-2 years 08/24/2015 64214 X-Ray Chest Two Views Completed 02/12/2014 46180 X-Ray Knee,Ap&Lateral Completed Oblique Views 06/14/2013 67743 Electrocardiogram Complete Completed 04/25/2012 89616 X-Ray, Thoracic Spine 3 Views Completed 04/25/2012 45806 X-Ray, C-Spine, Complete Completed 04/25/2012 36489 X-Ray Ribs Bilat 3 VWS Completed 03/25/2010 0 Payment Completed 07/30/2007 44684 X-Ray Knee, Complete Completed 06/26/2006 27051 Electrocardiogram Complete Completed 04/14/2006 50419 X-Ray Chest Two Views Completed Encounters Type Date Location Provider CPT E/M Dx Office Visit 01/03/2018 4:20p [place] [address] M51.16 M50.10 R10.11 M17.11 R35.0 Office Visit 10/24/2017 9:45a [place] [address] M51.16 M50.10 M15.0 K21.9 R10.11 R10.31 R35.0 R19.7 Office Visit 08/09/2017 11:00a [place] [address] M54.17 M54.13 M17.11 Z23 Z12.31 Z12.11 Office Visit 07/06/2017 3:55p [place] [address] R73.01 R03.0 M17.11 M79.661 G56.03 Office Visit 03/28/2017 4:50p [place] [address] R03.0 R73.01 L23.7 Office Visit 03/15/2017 11:00a [place] [address] M17.11 G56.03 M25.50 I83.893 Office Visit 01/18/2017 10:40a [place] [address] J20.9 M17.11 F43.23 Office Visit 01/10/2017 11:25a [place] [address] M17.11 G56.03 Office Visit 10/26/2016 3:00p [place] [address] R20.2 M17.11 F43.23 Office Visit 06/14/2016 3:30p [place] [address] Z00.01 F43.23 M25.561 Office Visit 08/24/2015 3:25p Main Office Angeles Van M.D. 99444 R05 J02.9 J02.8 J20.9 R19.7 Office Visit 08/10/2015 3:00p Main Office Angeles Van M.D. 23773 Z71.89 M25.519 M25.559 Z23 Z41.8 Office Visit 07/06/2015 1:30p Main Office Angeles Van M.D. 42912 M25.569 M25.519 M54.2 E79.0 Z71.89 Office Visit 05/26/2015 1:15p Main Office Lucas Traylor D.O. 70107 380.10 Office Visit 05/23/2015 11:15a Main Office Marlene Martinez, RPA-C 67134 380.10 Office Visit 03/09/2015 9:40a Main Office Marlene Martinez RPA-C 74973 V70.0 719.46 790.6 V76.19 V76.10 V77.91 274.00 Office Visit 02/25/2015 4:20p Main Office Marlene Martinez RPA-C 09984 726.19 530.81 692.9 Office Visit 05/08/2014 11:20a Main Office Demond Leal.Krystal 97453 782.1 719.46 Office Visit 02/24/2014 9:40a Main Office Demond Leal.Krystal 24810 719.46 782.1 723.9 530.11 V72.31 726.19 719.47 726.32 715.04 V70.0 V81.6 V76.19 Office Visit 02/12/2014 1:20p Main Office Demond Leal.Krystal 53995 719.46 274.00 Office Visit 12/05/2013 3:00p Main Office Carina Leal 07439 719.46 E906.0 726.64 890.0 Office Visit 10/04/2013 11:40a Main Office Cee Astorga P.A. 90320 726.19 723.9 530.11 723.4 Office Visit 09/23/2013 10:20a Main Office Cee Astorga P.A. 71517 726.19 530.11 726.32 Office Visit 07/08/2013 1:40p Main Office Cee Astorga P.A. 27789 719.46 719.47 530.11 Office Visit 06/14/2013 11:20a Main Office Cee Astorga P.A. 14377 V67.6 786.50 719.46 Office Visit 02/18/2013 5:00p Main Office Lemuel Park M.D. 66486 525.9 461.9 782.2 719.47 Office Visit 12/19/2012 11:20a Main Office Cee Astorga, P.A. 85760 009.2 845.00 Office Visit 08/13/2012 3:20p Main Office Cee Astorga, P.A. 34856 726.19 723.1 V70.0 V76.10 V76.2 V04.81 V06.1 V81.6 V07.2 Office Visit 04/25/2012 11:20a Main Office Cee Astorga P.A. 71668 723.1 726.19 724.1 724.5 786.51 Office Visit 03/31/2011 11:20a Main Office Cee Astorga, P.A. 04273 692.4 530.81 Office Visit 05/28/2010 1:40p Main Office Cee Astorga, P.A. 32045 788.1 616.10 618.04 V70.0 V76.10 530.10 724.2 Office Visit 01/25/2010 11:00a Main Office Cee Astorga, P.A. 25335 722.10 719.45 723.9 724.2 Office Visit 03/12/2009 10:00a [place] [address] V76.10 V76.2 454.9 V77.91 709.09 530.81 Office Visit 08/15/2008 12:55p [place] [address] 530.10 789.03 454.9 722.10 Office Visit 07/18/2008 10:45a [place] [address] 530.10 375.15 722.10 Office Visit 04/18/2008 4:45p Main Office Lemuel Park M.D. 26552 595.0 Office Visit 07/30/2007 4:45p [place] [address] 530.10 786.2 719.46 Office Visit 11/21/2006 3:30p [place] [address] 719.45 789.03 Office Visit 10/20/2006 2:00p [place] [address] 719.45 789.03 Office Visit 08/21/2006 12:55p [place] [address] 789.03 719.45 Office Visit 06/26/2006 11:00a [place] [address] 530.10 787.02 Office Visit 05/16/2006 9:45a [place] [address] 786.2 Office Visit 04/13/2006 12:55p [place] [address] 466.0 Office Visit 02/16/2006 11:15a [place] [address] 692.4 682.6 Plan of Care 01/03/2018 - Radha Negrete, PAM51.16 Intervertebral disc disorders w radiculopathy, lumbar regionComments:MRI L-spine: DDD, osteoarthritis, narrowing central canal L4-5, disc protrusion L4-S1, levoscolioticcurve. Pt to work on gentle back exercises. Continue current meds. Schedule w MS for OME.Follow up:schedule for OME w Dr. Ashton50.10 Cervical disc disorder w radiculopathy, unsp cervical regionNew Medication:Methylprednisolone 4 mgComments:MRI C-spine: DDD, osteoarthritis, reversal of lordosis, mild narrowing central canal C4-6, multi-level foraminal narrowing. Radiculopathy R arm. Rx for medrol dose pack. Continue other meds. Schedule wMS for OME.R10.11 Right upper quadrant painComments:Intermittent abdominal pain. Labs as below. U/ S of RUQ and pelvis done prior, both normal.M17.11 Unilateral primary osteoarthritis, right kneeComments:Continue using knee brace, ibuprofen, and prn tylenol #3 (discussed limited use). Hold PT for now, as patient could not tolerate it. Patient to f/u with Dr. Magallon--discussed that if he recommended surgery, she should consider it.R35.0 Frequency of micturitionComments:UA negative, will get u/s bladder/kidneys.
--- OUTSIDE RECORDS SUMMARY | 2018-03-12 19:48 | XMS REPORT ---
:1965 External Reference #:[id number] Author Organization [facility] Address [address] [place] [address] Phone [phone] Care Team Providers Name Role Phone HCP given Primary Care Physician Unavailable Payers Type Date Identification Numbers Payment Provider Subscriber Health Maintenance Policy Number: [id number] [employer] (HMO) PayID: [id number] [address] [place] [address] Problems Date Description Provider Status Onset: 08/15/2008 [...] social security disability - 2016.Previously worked at [employer], "[employer]", works 12 hour shifts, began 06/16. Cigarette [...] mouth K20.9 Hektor, 01/03/2018 daily in the [place] morning K21.9 Hydrocortisone 02/25/2015 - Hx [...] Tablets 500mg 14tabs 1 tab po 616.10 Silcoadrian, 06/05/2010 bid x 7d Pop Hdez Cipro [...] one tablet po 726.19 Beatriz, 06/06/2006 bid Bere NUÑEZ Clarithromycin - Hx Tablets 500mg 1 by mouth twice Unknown 03/14/2017 a day Guaifenesin-Code - Hx Syrup 100-10m 1 teaspoon every Unknown ine 03/14/2017 g/5ML 4 hours as needed for cough Immunizations CPT Code Status Date Vaccine Lot # [id number] Given 08/09/2017 Influenza Virus Vaccine, Quadrivalent, Split, [id number] Preservative Free 74786 Given 08/10/2015 Influenza Virus Vaccine, Quadrivalent, Split, Im Use 44561 Given 08/10/2015 Hep A, Adult [id number] 23898 Given 08/13/2012 Adacel or Boostrix, TDaP [id number] 84030 Given 08/13/2012 Flu, Split Virus 3Yrs [id number] Vital Signs Date Vital Result Comment 03/12/2018 [...] Bilirubin - Ua Ketones - Ua Specific [place] 1.010 Ua Blood - Ua PH 6.0 [...] 4 Ua Ketones - 4 Ua Specific [place] 1.010 4 Ua Blood - 4 Ua [...] Bilirubin - Ua Ketones - Ua Specific [place] - Ua Blood - Ua Inhouse 02/24/2014 Ua Glucose - Ua Bilirubin - Ua Ketones - Ua Specific [place] 1.010 Ua Blood - Ua PH 5.0 [...] Bilirubin sm Ua Ketones - Ua Specific [place] 1.020 Ua Blood - Ua PH 6.0 Ua Protein tr Ua Urobilinogen - Ua Nitrite - Ua Leukocytes - Laboratory test finding 08/13/2012 Cytology RUN DATE: <SEE NOTE&gt ; 43 Urine Micro Inhouse 05/28/2010 Ua WBC 2-3 Ua RBC - Ua Casts - Ua Epi tntc Ua Other some bacteria Ua Glucose - Ua Bilirubin - Ua Ketones - Ua Specific [place] 1.020 Ua Blood - Ua PH 6.0 [...] Bilirubin - Ua Ketones - Ua Specific [place] 1.025 Ua Blood - Ua PH 6.0 Ua Protein - Ua Urobilinogen - Ua Nitrite - Ua Leukocytes - Urine Micro Inhouse 04/18/2008 Urine Microscopic Inhouse see result notes 53 Ua Inhouse 04/18/2008 Ua Glucose - 53 Ua Bilirubin - 53 Ua Ketones - 53 Ua Specific [place] 1.020 53 Ua Blood lg 53 Ua [...] 8.0 5-9 55 Protein-Urine NEGATIVE Negative 55 Mooypwhrnuvx-Jv-EKM NEGATIVE Negative 55 Specific [place]-Ur 1.010 1.010-1.030 55 Laboratory test 06/26/2006 Blood [...] 5 Kidney failure <15 (or dialysis) 2 [id number] 3 SEE RESULT BELOW Name: YIN CASTRO : [address]: Óscar Sparks MD Acct: [id number] Unit: [id number] AGE: 52 Location: [facility] Re10/30/17 SEX: F Status: DEP REF SPEC: [id number] FEI: 10/30/17- SUBM DR: Óscar Sparks MD REQ: [id number] RECD: 10/30/173 STATUS: LUIS REHMAN DR: Radha Negrete [facility] _ ORDERED: LEVEL 4 COMMENTS: [id number] FINAL DIAGNOSIS Colon, sigmoid at 25 cm, [...] performed at Main Lab DEPARTMENT OF PATHOLOGY, [address] [place] [address] Gordon Solano M.D. Director [facility] # [id number] 4 void, clear, yellow 5 Serologic response to B. burgdorferi infection is not detected, but cannot rule out early infection during which low or undetectable antibody levels to B. burgdorferi may be present. If clinically indicated, a new serum specimen should be submitted in 7-14 days. Test Performed by: [address] [address] Linoleum Layer Apprentice: Angeles Kam II, M.D., Ph.D. 6 REFERENCE VALUE <=1.0 (Negative) Test Performed by: [facility] [place] [address] Linoleum Layer Apprentice: Angeles Kam II, M.D., Ph.D. 7 Test Performed by: [facility] [place] [address] Linoleum Layer Apprentice: Angeles Kam II, M.D., Ph.D. 8 REFERENCE VALUE <20.0 (Negative) Test Performed by: [place] [address] Linoleum Layer Apprentice: Angeles Kam II, M.D., Ph.D. 9 Because [...] submitted in 7-14 days. Test Performed by: [place] [address] Linoleum Layer Apprentice: Arden Rosenberg M.D. 21 Test Performed by: [place] [address] Linoleum Layer Apprentice: Arden Rosenberg M.D. 22 Because ethnic data [...] screening test (e.g., EIA). Test Performed by: [place] [address] Linoleum Layer Apprentice: Brian Weiss III, M.D. 29 Test Performed by: [place] [address] Linoleum Layer Apprentice: Brian Weiss III, M.D. 30 Because ethnic [...] <15 (or dialysis) 31 Test Performed by: [place] [address] Linoleum Layer Apprentice: Brian Weiss III, M.D. 32 Consistent with [...] 0.06 ng/mL Not supportive of diagnosis of CO 0.06 - 0.50 ng/mL Indeterminate: suggest serial studies if clinically indicated. Greater than 0.5 ng/mL Consistent with diagnosis of CO 36 Because ethnic data is not always [...] 37 Verbal to Rocio Frazier RN by [id number] at 1251 on 06/12/13. Results read back [...] has been shown to interfere with the [place] method for measuring total bilirubin. Samples from [...] than 189 MG/DL 43 RUN DATE: 08/15/12 [facility] LAB LIVE PAGE 1 RUN TIME: [address] [place] [address] Specimen Inquiry Name: YIN CASTRO : [address]: Cee Astorga PA Acct: [id number] Unit: [id number] AGE: 47 Location: [facility] Re08/13/12 SEX: F Status: REG REF SPEC: [id number] FEI: 08/13/12-[address]: Cee Astorga PA REQ: [id number] RECD: 08/15/12 STATUS: SOUT _ ORDERED: IMAGE [...] System. Due to cytologic findings at the x ray developer microscope, comprehensive manual rescreening by a Natural Sciences Department Chair may be required. The Pap Smear is [...] performed at Main Lab DEPARTMENT OF PATHOLOGY, [address] [place] [address] Gordon Solano M.D. Director [facility] Permit #[id number] [phone] CHOLESTEROL INTERPRETATION: Desirable: Less than 200 [...] change was based on recommendations from the [place] [employer]. 49 Please note change in reference range effective 08 . 50 A metabolite of Naproxen, O-desmethylnaproxen, has been shown to interfere with the [place] method for measuring total bilirubin. Samples from [...] (or dialysis) 52 ---- RUN DATE: 03/13/09 [facility] NMI LIVE PAGE 1 RUN TIME: 1212 Specimen Inquiry RUN USER: INTERFACE -- Name: YIN CASTRO Status: REG REF Re03/12/09 Age/Sex: 43/F Unit#: [id number] Location: [facility] : 63 -- Specimen: [id number] SOUT Spec Date: 03/12/[address]: Bree [...] CULLEN(ASC) 03/13/09 Final Interpretation electronically signed by: Audrye CULLEN([facility]) 03/13/09 1211 -- -- DEPARTMENT OF PATHOLOGY, [address] [place] [address] [facility] Permit #[id number] Gordon Solano M.D. Director Anita Milner M.D. Staffing Clerk Dir jenna -- 52 wbc tntc, rbc [...] 5 DAYS 58 ---- RUN DATE: 06/22/06 [facility] NMI LIVE PAGE 1 RUN TIME: 1203 Specimen Inquiry RUN USER: INTERFACE [id number] YIN CASTRO 40/F <DIS IN 06/22> ([id number]) 308-01 3PD Brendan Mckeon MD. -- Specimen: [id number] SOUT Spec Date: 06/20/[address]: Meño Mckeon MD Spec Type: SURGICAL P Received: 06/21/06-8033 Copies to: Bree Henderson MD. SPECIMEN UTERUS [...] no leiomyomas are noted in the endomyometrium. Life Skills Coach sections are submitted in three blocks labelled [...] MD 06/22/06 -- -- DEPARTMENT OF PATHOLOGY, [address] [place] [address] [facility] Permit #[id number] Angeles Serrano II, M.D. Director Gordon Solano M.D. Staffing Clerk D irector -- 60 [facility] 06/20/06 60 PREADMISSION TESTING SAMPLES FOR [...] prefers to screen every 1-2 years 08/24/2015 00607 X-Ray Chest Two Views Completed 02/12/2014 78779 X-Ray Knee,Ap&Lateral Completed Oblique Views 06/14/2013 80893 Electrocardiogram Complete Completed 04/25/2012 44642 X-Ray, Thoracic Spine 3 Views Completed 04/25/2012 97293 X-Ray, C-Spine, Complete Completed 04/25/2012 12650 X-Ray Ribs Bilat 3 VWS Completed 03/25/2010 0 Payment Completed 07/30/2007 38486 X-Ray Knee, Complete Completed 06/26/2006 67071 Electrocardiogram Complete Completed 04/14/2006 08283 X-Ray Chest Two Views Completed Encounters Type Date Location Provider CPT E/M Dx Office Visit 01/03/2018 4:20p [place] [address] M51.16 M50.10 R10.11 M17.11 R35.0 Office Visit 10/24/2017 9:45a [place] [address] M51.16 M50.10 M15.0 K21.9 R10.11 R10.31 R35.0 R19.7 Office Visit 08/09/2017 11:00a [place] [address] M54.17 M54.13 M17.11 Z23 Z12.31 Z12.11 Office Visit 07/06/2017 3:55p [place] [address] R73.01 R03.0 M17.11 M79.661 G56.03 Office Visit 03/28/2017 4:50p [place] [address] R03.0 R73.01 L23.7 Office Visit 03/15/2017 11:00a [place] [address] M17.11 G56.03 M25.50 I83.893 Office Visit 01/18/2017 10:40a [place] [address] J20.9 M17.11 F43.23 Office Visit 01/10/2017 11:25a [place] [address] M17.11 G56.03 Office Visit 10/26/2016 3:00p [place] [address] R20.2 M17.11 F43.23 Office Visit 06/14/2016 3:30p [place] [address] Z00.01 F43.23 M25.561 Office Visit 08/24/2015 3:25p Main Office Angeles Van M.D. 28840 R05 J02.9 J02.8 J20.9 R19.7 Office Visit 08/10/2015 3:00p Main Office Angeles Van M.D. 12665 Z71.89 M25.519 M25.559 Z23 Z41.8 Office Visit 07/06/2015 1:30p Main Office Angeles Van M.D. 35078 M25.569 M25.519 M54.2 E79.0 Z71.89 Office Visit 05/26/2015 1:15p Main Office Lucas Traylor D.O. 85657 380.10 Office Visit 05/23/2015 11:15a Main Office Marlene Martinez, RPA-C 19645 380.10 Office Visit 03/09/2015 9:40a Main Office Marlene Martinez RPA-C 51783 V70.0 719.46 790.6 V76.19 V76.10 V77.91 274.00 Office Visit 02/25/2015 4:20p Main Office Marlene Martinez RPA-C 53725 726.19 530.81 692.9 Office Visit 05/08/2014 11:20a Main Office Demond Leal.Krystal 26754 782.1 719.46 Office Visit 02/24/2014 9:40a Main Office Demond Leal.Krystal 63310 719.46 782.1 723.9 530.11 V72.31 726.19 719.47 726.32 715.04 V70.0 V81.6 V76.19 Office Visit 02/12/2014 1:20p Main Office Demond Leal.Krystal 46448 719.46 274.00 Office Visit 12/05/2013 3:00p Main Office Carina Leal 32764 719.46 E906.0 726.64 890.0 Office Visit 10/04/2013 11:40a Main Office Cee Astorga P.A. 72997 726.19 723.9 530.11 723.4 Office Visit 09/23/2013 10:20a Main Office Cee Astorga P.A. 32619 726.19 530.11 726.32 Office Visit 07/08/2013 1:40p Main Office Cee Astorga P.A. 10699 719.46 719.47 530.11 Office Visit 06/14/2013 11:20a Main Office Cee Astorga P.A. 34742 V67.6 786.50 719.46 Office Visit 02/18/2013 5:00p Main Office Lemuel Park M.D. 93041 525.9 461.9 782.2 719.47 Office Visit 12/19/2012 11:20a Main Office Cee Astorga, P.A. 67941 009.2 845.00 Office Visit 08/13/2012 3:20p Main Office Cee Astorga, P.A. 06410 726.19 723.1 V70.0 V76.10 V76.2 V04.81 V06.1 V81.6 V07.2 Office Visit 04/25/2012 11:20a Main Office Cee Astorga P.A. 95015 723.1 726.19 724.1 724.5 786.51 Office Visit 03/31/2011 11:20a Main Office Cee Astorga, P.A. 64919 692.4 530.81 Office Visit 05/28/2010 1:40p Main Office Cee Astorga, P.A. 66827 788.1 616.10 618.04 V70.0 V76.10 530.10 724.2 Office Visit 01/25/2010 11:00a Main Office Cee Astorga, P.A. 39865 722.10 719.45 723.9 724.2 Office Visit 03/12/2009 10:00a [place] [address] V76.10 V76.2 454.9 V77.91 709.09 530.81 Office Visit 08/15/2008 12:55p [place] [address] 530.10 789.03 454.9 722.10 Office Visit 07/18/2008 10:45a [place] [address] 530.10 375.15 722.10 Office Visit 04/18/2008 4:45p Main Office Lemuel Park M.D. 42114 595.0 Office Visit 07/30/2007 4:45p [place] [address] 530.10 786.2 719.46 Office Visit 11/21/2006 3:30p [place] [address] 719.45 789.03 Office Visit 10/20/2006 2:00p [place] [address] 719.45 789.03 Office Visit 08/21/2006 12:55p [place] [address] 789.03 719.45 Office Visit 06/26/2006 11:00a [place] [address] 530.10 787.02 Office Visit 05/16/2006 9:45a [place] [address] 786.2 Office Visit 04/13/2006 12:55p [place] [address] 466.0 Office Visit 02/16/2006 11:15a [place] [address] 692.4 682.6 Plan of Care 01/03/2018 - [...]
--- OUTSIDE RECORDS SUMMARY | 2018-03-12 19:50 | XMS REPORT ---
:1965 External Reference #:[id number] Author Organization [facility] Address [address] [place] [address] Phone [phone] Care Team Providers Name Role Phone HCP given Primary Care Physician Unavailable Payers Type Date Identification Numbers Payment Provider Subscriber Health Maintenance Policy Number: [id number] [employer] (HMO) PayID: [id number] [address] [place] [address] Problems Date Description Provider Status Onset: 08/15/2008 [...] social security disability - 2016.Previously worked at [employer], "[employer]", works 12 hour shifts, began 06/16. Cigarette [...] mouth K20.9 Hektor, 01/03/2018 daily in the [place], [place] morning K21.9 Hydrocortisone 02/25/2015 - Hx [...] CPT Code Status Date Vaccine Lot # [id number] Given 08/09/2017 Influenza Virus Vaccine, Quadrivalent, Split, [id number] Preservative Free 04007 Given 08/10/2015 Influenza Virus Vaccine, Quadrivalent, Split, Im Use 92413 Given 08/10/2015 Hep A, Adult [id number] 27211 Given 08/13/2012 Adacel or Boostrix, TDaP [id number] 52521 Given 08/13/2012 Flu, Split Virus 3Yrs [id number] Vital Signs Date Vital Result Comment 03/12/2018 [...] Bilirubin - Ua Ketones - Ua Specific [place] 1.010 Ua Blood - Ua PH 6.0 [...] 4 Ua Ketones - 4 Ua Specific [place] 1.010 4 Ua Blood - 4 Ua [...] Bilirubin - Ua Ketones - Ua Specific [place] - Ua Blood - Ua Inhouse 02/24/2014 Ua Glucose - Ua Bilirubin - Ua Ketones - Ua Specific [place] 1.010 Ua Blood - Ua PH 5.0 [...] Bilirubin sm Ua Ketones - Ua Specific [place] 1.020 Ua Blood - Ua PH 6.0 Ua Protein tr Ua Urobilinogen - Ua Nitrite - Ua Leukocytes - Laboratory test finding 08/13/2012 Cytology RUN DATE: <SEE NOTE&gt ; 43 Urine Micro Inhouse 05/28/2010 Ua WBC 2-3 Ua RBC - Ua Casts - Ua Epi tntc Ua Other some bacteria Ua Glucose - Ua Bilirubin - Ua Ketones - Ua Specific [place] 1.020 Ua Blood - Ua PH 6.0 [...] Bilirubin - Ua Ketones - Ua Specific [place] 1.025 Ua Blood - Ua PH 6.0 Ua Protein - Ua Urobilinogen - Ua Nitrite - Ua Leukocytes - Urine Micro Inhouse 04/18/2008 Urine Microscopic Inhouse see result notes 53 Ua Inhouse 04/18/2008 Ua Glucose - 53 Ua Bilirubin - 53 Ua Ketones - 53 Ua Specific [place] 1.020 53 Ua Blood lg 53 Ua [...] 8.0 5-9 55 Protein-Urine NEGATIVE Negative 55 Qcrlrpoiznab-Ah-UKR NEGATIVE Negative 55 Specific [place]-Ur 1.010 1.010-1.030 55 Laboratory test 06/26/2006 Blood [...] 5 Kidney failure <15 (or dialysis) 2 [id number] 3 SEE RESULT BELOW Name: YIN CASTRO : [address]: Óscar Sparks MD Acct: [id number] Unit: [id number] AGE: 52 Location: [facility] Re10/30/17 SEX: F Status: DEP REF SPEC: [id number] FEI: 10/30/17- SUBM DR: Óscar Sparks MD REQ: [id number] RECD: 10/30/173 STATUS: LUIS REHMAN DR: Radha Negrete [facility] _ ORDERED: LEVEL 4 COMMENTS: [id number] FINAL DIAGNOSIS Colon, sigmoid at 25 cm, [...] performed at Main Lab DEPARTMENT OF PATHOLOGY, [address] [place] [address] Gordon Solano M.D. Director [facility] # [id number] 4 void, clear, yellow 5 Serologic response to B. burgdorferi infection is not detected, but cannot rule out early infection during which low or undetectable antibody levels to B. burgdorferi may be present. If clinically indicated, a new serum specimen should be submitted in 7-14 days. Test Performed by: [address] [address] Advanced Manufacturing Engineer: Angeles Kam II, M.D., Ph.D. 6 REFERENCE VALUE <=1.0 (Negative) Test Performed by: [facility] [place] [address] Advanced Manufacturing Engineer: Angeles Kam II, M.D., Ph.D. 7 Test Performed by: [facility] [place] [address] Advanced Manufacturing Engineer: Angeles Kam II, M.D., Ph.D. 8 REFERENCE VALUE <20.0 (Negative) Test Performed by: [place] [address] Advanced Manufacturing Engineer: Angeles Kam II, M.D., Ph.D. 9 Because [...] submitted in 7-14 days. Test Performed by: [place] [address] Advanced Manufacturing Engineer: Arden Rosenberg M.D. 21 Test Performed by: [place] [address] Advanced Manufacturing Engineer: Arden Rosenberg M.D. 22 Because ethnic data [...] screening test (e.g., EIA). Test Performed by: [place] [address] Advanced Manufacturing Engineer: Brian Weiss III, M.D. 29 Test Performed by: [place] [address] Advanced Manufacturing Engineer: Brian Weiss III, M.D. 30 Because ethnic [...] <15 (or dialysis) 31 Test Performed by: [place] [address] Advanced Manufacturing Engineer: Brian Weiss III, M.D. 32 Consistent with [...] 0.06 ng/mL Not supportive of diagnosis of ND 0.06 - 0.50 ng/mL Indeterminate: suggest serial studies if clinically indicated. Greater than 0.5 ng/mL Consistent with diagnosis of ND 36 Because ethnic data is not always [...] 37 Verbal to Rocio Frazier RN by [id number] at 1251 on 06/12/13. Results read back [...] has been shown to interfere with the Jendrassik-[place] method for measuring total bilirubin. Samples from [...] than 189 MG/DL 43 RUN DATE: 08/15/12 [facility] LAB LIVE PAGE 1 RUN TIME: [address] [place] [address] Specimen Inquiry Name: YIN CASTRO : [address]: Cee Astorga PA Acct: [id number] Unit: [id number] AGE: 47 Location: [facility] Re08/13/12 SEX: F Status: REG REF SPEC: [id number] FEI: 08/13/12-[address]: Cee Astorga PA REQ: [id number] RECD: 08/15/12 STATUS: SOUT _ ORDERED: IMAGE [...] System. Due to cytologic findings at the porter marina microscope, comprehensive manual rescreening by a Certified Activities Director may be required. The Pap Smear is [...] performed at Main Lab DEPARTMENT OF PATHOLOGY, [address] [place] [address] Gordon Solano M.D. Director [facility] Permit #[id number] CHOLESTEROL INTERPRETATION: Desirable: Less than 200 [...] change was based on recommendations from the [place] [employer]. 49 Please note change in reference range effective 08 . 50 A metabolite of Naproxen, O-desmethylnaproxen, has been shown to interfere with the Jendrassik-[place] method for measuring total bilirubin. Samples from [...] (or dialysis) 52 ---- RUN DATE: 03/13/09 [facility] NMI LIVE PAGE 1 RUN TIME: 1212 Specimen Inquiry RUN USER: INTERFACE -- Name: YIN CASTRO Status: REG REF Re03/12/09 Age/Sex: 43/F Unit#: [id number] Location: [facility] : 63 -- Specimen: [id number] SOUT Spec Date: 03/12/[address]: Bree [...] 03/13/09 Final Interpretation electronically signed by: Audrey CULLEN([facility]) 03/13/09 1211 -- -- DEPARTMENT OF PATHOLOGY, [address] [place] [address] [facility] Permit #[id number] Gordon Solano M.D. Director Anita Milner M.D. Welding Equipment Repairer Supervisor Dir jenna -- 52 wbc tntc, rbc [...] 5 DAYS 58 ---- RUN DATE: 06/22/06 [facility] NMI LIVE PAGE 1 RUN TIME: 1203 Specimen Inquiry RUN USER: INTERFACE [id number] YIN CASTRO 40/F <DIS IN 06/22> ([id number]) [phone] 3PD Brendan Mckeon MD. -- Specimen: [id number] SOUT Spec Date: 06/20/[address]: Meño Mckeon MD Spec Type: SURGICAL P Received: 06/21/06-1757 Copies to: Bree Henderson MD. SPECIMEN UTERUS [...] no leiomyomas are noted in the endomyometrium. Steam Powerplant Supervisor sections are submitted in three blocks labelled [...] MD 06/22/06 -- -- DEPARTMENT OF PATHOLOGY, [address] [place] [address] [facility] Permit #[id number] Angeles Serrano II, M.D. Director Gordon Solano M.D. Welding Equipment Repairer Supervisor D irector -- 60 [facility] 06/20/06 61 PREADMISSION TESTING SAMPLES FOR BLOOD [...] prefers to screen every 1-2 years 08/24/2015 13526 X-Ray Chest Two Views Completed 02/12/2014 42102 X-Ray Knee,Ap&Lateral Completed Oblique Views 06/14/2013 28999 Electrocardiogram Complete Completed 04/25/2012 10880 X-Ray, Thoracic Spine 3 Views Completed 04/25/2012 40264 X-Ray, C-Spine, Complete Completed 04/25/2012 03933 X-Ray Ribs Bilat 3 VWS Completed 03/25/2010 0 Payment Completed 07/30/2007 91678 X-Ray Knee, Complete Completed 06/26/2006 89689 Electrocardiogram Complete Completed 04/14/2006 08324 X-Ray Chest Two Views Completed Encounters Type Date Location Provider CPT E/M Dx Office Visit 01/03/2018 4:20p [place] [address] M51.16 M50.10 R10.11 M17.11 R35.0 Office Visit 10/24/2017 9:45a [place] [address] M51.16 M50.10 M15.0 K21.9 R10.11 R10.31 R35.0 R19.7 Office Visit 08/09/2017 11:00a [place] [address] M54.17 M54.13 M17.11 Z23 Z12.31 Z12.11 Office Visit 07/06/2017 3:55p [place] [address] R73.01 R03.0 M17.11 M79.661 G56.03 Office Visit 03/28/2017 4:50p [place] [address] R03.0 R73.01 L23.7 Office Visit 03/15/2017 11:00a [place] [address] M17.11 G56.03 M25.50 I83.893 Office Visit 01/18/2017 10:40a [place] [address] J20.9 M17.11 F43.23 Office Visit 01/10/2017 11:25a [place] [address] M17.11 G56.03 Office Visit 10/26/2016 3:00p [place] [address] R20.2 M17.11 F43.23 Office Visit 06/14/2016 3:30p [place] [address] Z00.01 F43.23 M25.561 Office Visit 08/24/2015 3:25p Main Office Angeles Van M.D. 24427 R05 J02.9 J02.8 J20.9 R19.7 Office Visit 08/10/2015 3:00p Main Office Angeles Van M.D. 69824 Z71.89 M25.519 M25.559 Z23 Z41.8 Office Visit 07/06/2015 1:30p Main Office Angeles Van M.D. 64237 M25.569 M25.519 M54.2 E79.0 Z71.89 Office Visit 05/26/2015 1:15p Main Office Lucas Traylor D.O. 18334 380.10 Office Visit 05/23/2015 11:15a Main Office Marlene Martinez, RPA-C 66483 380.10 Office Visit 03/09/2015 9:40a Main Office Marlene Martinez RPA-C 03067 V70.0 719.46 790.6 V76.19 V76.10 V77.91 274.00 Office Visit 02/25/2015 4:20p Main Office Marlene Martinez RPA-C 15337 726.19 530.81 692.9 Office Visit 05/08/2014 11:20a Main Office Demond Leal.Krystal 92720 782.1 719.46 Office Visit 02/24/2014 9:40a Main Office Demond Leal.Krystal 08420 719.46 782.1 723.9 530.11 V72.31 726.19 719.47 726.32 715.04 V70.0 V81.6 V76.19 Office Visit 02/12/2014 1:20p Main Office Demond Leal.Krystal 74447 719.46 274.00 Office Visit 12/05/2013 3:00p Main Office Carina Leal 92927 719.46 E906.0 726.64 890.0 Office Visit 10/04/2013 11:40a Main Office Cee Astorga P.A. 19984 726.19 723.9 530.11 723.4 Office Visit 09/23/2013 10:20a Main Office Cee Astorga P.A. 34418 726.19 530.11 726.32 Office Visit 07/08/2013 1:40p Main Office Cee Astorga P.A. 17314 719.46 719.47 530.11 Office Visit 06/14/2013 11:20a Main Office Cee Astorga P.A. 37966 V67.6 786.50 719.46 Office Visit 02/18/2013 5:00p Main Office Lemuel Park M.D. 27269 525.9 461.9 782.2 719.47 Office Visit 12/19/2012 11:20a Main Office Cee Astorga, P.A. 20079 009.2 845.00 Office Visit 08/13/2012 3:20p Main Office Cee Astorga, P.A. 81338 726.19 723.1 V70.0 V76.10 V76.2 V04.81 V06.1 V81.6 V07.2 Office Visit 04/25/2012 11:20a Main Office Cee Astorga P.A. 76246 723.1 726.19 724.1 724.5 786.51 Office Visit 03/31/2011 11:20a Main Office Cee Astorga, P.A. 59785 692.4 530.81 Office Visit 05/28/2010 1:40p Main Office Cee Astorga, P.A. 70834 788.1 616.10 618.04 V70.0 V76.10 530.10 724.2 Office Visit 01/25/2010 11:00a Main Office Cee Astorga, P.A. 84345 722.10 719.45 723.9 724.2 Office Visit 03/12/2009 10:00a [place] [address] V76.10 V76.2 454.9 V77.91 709.09 530.81 Office Visit 08/15/2008 12:55p [place] [address] 530.10 789.03 454.9 722.10 Office Visit 07/18/2008 10:45a [place] [address] 530.10 375.15 722.10 Office Visit 04/18/2008 4:45p Main Office Lemuel Park M.D. 65312 595.0 Office Visit 07/30/2007 4:45p [place] [address] 530.10 786.2 719.46 Office Visit 11/21/2006 3:30p [place] [address] 719.45 789.03 Office Visit 10/20/2006 2:00p [place] [address] 719.45 789.03 Office Visit 08/21/2006 12:55p [place] [address] 789.03 719.45 Office Visit 06/26/2006 11:00a [place] [address] 530.10 787.02 Office Visit 05/16/2006 9:45a [place] [address] 786.2 Office Visit 04/13/2006 12:55p [place] [address] 466.0 Office Visit 02/16/2006 11:15a [place] [address] 692.4 682.6 Plan of Care 01/03/2018 - [...]
[2018-03-12 19:53] VITALS: BP 156/93
[2018-03-12] MEDS ORDERED: Tetracaine 0.5% OPTH.SOL 4 ML* 1 DROP BTL LEFT EYE ONE (20:05)
[2018-03-12] MEDS ORDERED: Fluorescein Sod TOPICAL 0.6* 0.6 MG TEST OPHTHALMIC ONE (20:13)
--- NOTE | 2018-03-12 20:13 | UC ---
Eye Complaint HPI - HPI Summary HPI Summary: 52 yo female presents with left eye ?FB. 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 She went into the shower and tried to rinse her eye, but it was still irritating and she feels there might be something in it. She does not wear glasses or contacts. - History of Current Complaint Hx Obtained From: Patient Onset/Duration: Sudden Onset Timing: Constant Severity Initially: Severe Severity Currently: Severe Pain Intensity: 8 Pain Scale Used: 0-10 Numeric <Houston Dalton - Last Filed: 03/12/18 21:03> <Mook Ahn - Last Filed: 03/14/18 14:44> - History of Current Complaint Chief Complaint: UCEye Stated Complaint: FOREIGN BODY IN EYE Time Seen by Provider: 03/12/18 20:13 - Allergies/Home Medications Allergies/Adverse Reactions: Allergies Allergy/AdvReac Type Severity Reaction Status Date / Time No Known Allergies Allergy Verified 03/12/18 19:54 PMH/Surg Hx/FS Hx/Imm Hx - Additional Past Medical History Additional PMH: Gout GI/ History: Gastroesophageal Reflux Psychological History: Anxiety - Surgical History Surgical History: Yes Surgery Procedure, Year, and Place: [id number];. [place]LE[place]OMY- 2003[place];. RT KNEE SURGERY MEN[place] 2013;. LEFT LEG VARICOSE VEINS DR. ESPINOZA -[facility] [place]; - Family History Known Family History: Positive: Cardiac Disease - CAD (mother) - Social History Occupation: Employed Full-time Lives: With Family Alcohol Use: Occasionally Substance Use Type: None Smoking Status (MU): Never Smoked Tobacco - Immunization History Most Recent Influenza Vaccination: 2011 Most Recent Tetanus Shot: unknown <Houston Dalton - Last Filed: 03/12/18 21:03> Review of Systems Constitutional: Negative Skin: Negative Eyes: Eye Redness - Left Respiratory: Negative Cardiovascular: Negative Neurovascular: Negative Neurological: Negative Psychological: Negative All Other Systems Reviewed And Are Negative: Yes <Houston Dalton - Last Filed: 03/12/18 21:03> Physical Exam - Summary Physical Exam Summary: GENERAL: WDWN. Mild pain distress. SKIN: No rashes, sores, lesions, or open wounds. HEENT: Head: AT/NC Eyes: EOM intact. PERRLA. RIGHT EYE: Conjunctiva clear without inflammation or discharge. LEFT EYE: Conjunctiva mildly inflamed. Sclera injected. Watering. Able to open eye on her own. No obvious FBs appreciated. Fluorescein dye exam: No increased uptake. No abrasions. No birgit sign. NECK: Supple. Nontender. No lymphadenopathy. CHEST: No accessory muscle use. Breathing comfortably and in no distress. CV: Pulses intact. Brisk cap refill. NEURO: Alert. CN II-XII grossly intact. PSYCH: Age appropriate behavior. Triage Information Reviewed: Yes Vital Signs: Initial Vital Signs Temp 98.0 F 03/12/18 19:47 Pulse 64 03/12/18 19:47 Resp 16 03/12/18 19:47 BP 156/93 03/12/18 19:47 Pulse Ox 100 03/12/18 19:47 <Houston Dalton - Last Filed: 03/12/18 21:03> Vital Signs: Initial Vital Signs Temp 98.0 F 03/12/18 19:47 Pulse 64 03/12/18 19:47 Resp 16 03/12/18 19:47 BP 156/93 03/12/18 19:47 Pulse Ox 100 03/12/18 19:47 <Mook Ahn - Last Filed: 03/14/18 14:44> Eye Complaint Course/Dx - Course Course Of Treatment: Tetracaine administration provided great pain relief. Malvin lens flush of 500cc to left eye. Pt tolerated well and felt better. Rx for polytrim. - Differential Dx/Diagnosis Provider Diagnoses: Left eye FB <Houston Dalton - Last Filed: 03/12/18 21:03> Discharge - Sign-Out/Discharge Documenting (check all that apply): Discharge/Admit/Transfer - Billing Disposition and Condition Condition: STABLE Disposition: Home <Houston Dalton Filed: 03/12/18 21:03> - Billing Disposition and Condition Condition: STABLE Disposition: Home <Mook Ahn - Last Filed: 03/14/18 14:44> - Discharge Plan Condition: Stable Disposition: HOME Patient Education Materials: Eye Foreign Body (ED) Referrals: Penelope MARTIN,Radha Olmos [Primary Care Provider] - Mehrdad Schilling MD [Medical Doctor] - If Needed Additional Instructions: If you develop a fever, shortness of breath, chest pain, new or worsening symptoms - please call your PCP or go to the ED. Your blood pressure was high at todays visit. Please see your primary provider within 4 weeks for recheck and re-evaluation. 1) If your eye continues to bother you - please call Dr. Schilling at the number below to schedule a follow up appointment Per institutional requirements, I have reviewed the chart, however, I was not consulted specifically or made aware of this patient by the above midlevel provider. I did not personally evaluate, interact with , or disposition this patient.
[2018-03-12] MEDS ORDERED: Polymyx/Trimethoprim OPTH* 10 ML BTL LEFT EYE ONE (20:43)
== END 2018-03-12 21:09 | disposition home or self-care (01) ==
LOC: UCEAST 19:39
DX: T15.92XA Foreign body on external eye, part unspecified, left eye, initial encounter (principal); X58.XXXA Exposure to other specified factors, initial encounter; Y92.9 Unspecified place or not applicable
CPT/HCPCS: 99213; A9270-GY; G0463

== ENCOUNTER 2019-08-28 15:47 | Emergency (ER) | payer BC, MEDICARE ==
[2019-08-28] MEDS ORDERED: Penicillin VK TAB* 250 MG PO ONE (16:34)
--- NOTE | 2019-08-28 16:36 | ED ---
Throat Pain/Nasal Congestion - HPI Summary HPI Summary: 54-year-old female presents with sore throat for the past couple weeks. She states that area was larger then it popped. She states that area got better but now the swelling has return. She has not followed up with anyone about this. Has not been on antibiotics recently. Denies any dental pain. No fevers. No sore throat. No difficulty swallowing. She denies any chest pain shortness breath. No cough. - History of Current Complaint Chief Complaint: EDRashSkinAbscess Time Seen by Provider: 08/28/19 16:10 - Allergies/Home Medications Allergies/Adverse Reactions: Allergies Allergy/AdvReac Type Severity Reaction Status Date / Time No Known Allergies Allergy Verified 08/28/19 15:54 PMH/Surg Hx/FS Hx/Imm Hx Endocrine/Hematology History: Denies: Hx Diabetes Cardiovascular History: Reports: Hx Angina Denies: Hx Hypertension, Hx Pacemaker/ICD, Other Cardiovascular Problems/ Disorders Respiratory History: Denies: Hx Asthma, Hx Chronic Obstructive Pulmonary Disease (COPD), Other Respiratory Problems/Disorders GI History: Reports: Hx Gall Bladder Disease - cholecystectomy, Hx Gastroesophageal Reflux Disease - ON MED Denies: Other GI Disorders History: Denies: Hx Renal Disease, Other Problems/Disorders Musculoskeletal History: Reports: Hx Back Problems - Bulging disc, degen disc disease Denies: Other Musculoskeletal History Sensory History: Denies: Hx Contacts or Glasses, Hx Hearing Aid Opthamlomology History: Denies: Hx Contacts or Glasses Neurological History: Reports: Other Neuro Impairments/Disorders - bulging disc in lower spine, causing some low back pain Psychiatric History: Denies: Hx Panic Disorder - Cancer History Hx Chemotherapy: No Hx Radiation Therapy: No - Surgical History Surgery Procedure, Year, and Place: [id number];. CHOLECYSTECTOMY- 2003-[place];. RT KNEE SURGERY [place] 2013;. LEFT LEG VARICOSE VEINS DR. [facility] -[facility] [place]; Hx Anesthesia Reactions: No - Immunization History Date of Tetanus Vaccine: unknown Date of Influenza Vaccine: none Infectious Disease History: No Infectious Disease History: Reports: Hx Tuberculosis - 2003 Denies: Traveled Outside the [place] in Last 30 Days - Family History Known Family History: Positive: Cardiac Disease - CAD (mother) - Social History Alcohol Use: Occasionally Hx Substance Use: No Substance Use Type: Reports: None Hx Tobacco Use: No Smoking Status (MU): Never Smoked Tobacco Review of Systems Negative: Fever Positive: Other - mouth pain. Negative: Dental Pain Negative: Chest Pain Negative: Shortness Of Breath All Other Systems Reviewed And Are Negative: Yes Physical Exam Triage Information Reviewed: Yes Vital Signs On Initial Exam: Initial Vitals Temp Pulse Resp BP Pulse Ox 98.4 F 80 16 155/94 98 08/28/19 15:50 08/28/19 15:50 08/28/19 15:50 08/28/19 15:50 08/28/19 15:50 Vital Signs Reviewed: Yes Appearance: Positive: Well-Appearing Skin: Positive: Warm, Dry Head/Face: Positive: Normal Head/Face Inspection Eyes: Positive: Normal, EOMI, ANGELA, Conjunctiva Clear ENT: Positive: Pharynx normal, TMs normal Dental: Positive: Other - area of induration without flutuance to top of mouth. Negative: Percussion Tenderness @, Gross Decay/Caries @ Respiratory/Lung Sounds: Positive: Clear to Auscultation, Breath Sounds Present Cardiovascular: Positive: Normal, RRR Musculoskeletal: Positive: Normal Neurological: Positive: Normal Psychiatric: Positive: Normal Procedures - Sedation Patient Received Moderate/Deep Sedation with Procedure: No Diagnostics - Vital Signs Vital Signs Temp Pulse Resp BP Pulse Ox 08/28/19 15:50 98.4 F 80 16 155/94 98 - Laboratory Lab Statement: Any lab studies that have been ordered have been reviewed, and results considered in the medical decision making process. EENT Course/Dx - Course Course Of Treatment: 54-year-old female presents with sore throat for the past couple weeks. She states that area was larger then it popped. She states that area got better but now the swelling has return. She has not followed up with anyone about this. Has not been on antibiotics recently. Denies any dental pain. No fevers. No sore throat. No difficulty swallowing. She denies any chest pain shortness breath. No cough. On exam has area of induration on top of mouth behind teeth. No fluctuance noted. Does not feeling like can get draining from area at this moment. We'll place on a course of penicillin. Told to follow-up with dentist. Patient understands and agrees with plan. - Differential Diagnoses Differential Diagnoses: Dental Abscess, Dental Caries - Diagnoses Provider Diagnoses: Infection of mouth Discharge ED - Sign-Out/Discharge Documenting (check all that apply): Patient Departure - Discharge Plan Condition: Good Disposition: HOME Prescriptions: Penicillin VK TAB* [Penicillin VK 250 mg Tab*] 500 mg PO QID #27 tab Referrals: Radha Negrete PA [Primary Care Provider] - Additional Instructions: follow up with dentist Take penicillin four times a day for 7 days continue mouth wash Return to ED if develop any new or worsening symptoms - Billing Disposition and Condition Condition: GOOD Disposition: Home - Attestation Statements Provider Attestation: I was available for consultation for this patient. I did not evaluate the patient or participate in any medical decision making or disposition decisions unless I am specifically named in the chart as having consulted on the patient. If I have consulted on the patient, please see my own ED note on the patient encounter. Maribeth Rincon MD
[2019-08-28] MEDS ORDERED: Ketorolac INJ* 30 MG/ML 1 ML VIAL IM ONE (16:41)
[2019-08-28 17:35] VITALS: BP 167/80
== END 2019-08-28 16:59 | disposition home or self-care (01) ==
LOC: ED 15:47
DX: K12.2 Cellulitis and abscess of mouth (principal); K21.9 Gastro-esophageal reflux disease without esophagitis
CPT/HCPCS: 96372; 99282; A9270-GY; J1885